=== PATIENT | female | born 1995 | race Caucasian/White ===

== ENCOUNTER 2021-03-27 11:41 | Emergency (ER) | payer BC, SELFPAY ==
--- NOTE | ~2021-03-27 | XR_ITS ---
XR knee LT 3V 03/27/2021 13:24 INDICATION: Left knee pain after fall PROCEDURE: 3 views left knee COMPARISON: No prior studies for comparison. FINDINGS: Fracture, dislocation or subluxation is not identified. No significant joint effusion. The soft tissues appear within normal limits. No foreign bodies are identified. IMPRESSION: 1: NO ACUTE BONE OR JOINT ABNORMALITY IDENTIFIED. Reviewed, dictated and finalized at location A.
--- NOTE | ~2021-03-27 | XR_ITS ---
XR foot LT min 3V 03/27/2021 13:24 Indication: Left foot pain after fall Procedure: 4 views left foot Comparison: No prior studies for comparison. Findings: There are mildly angulated fractures of the third and fourth metatarsal necks without intra -articular extension. Lisfranc joint is intact. Impression: 1: Mildly angulated extra-articular fractures of the left third and fourth metatarsal necks. Reviewed, dictated and finalized at location A. Impression: 1: Mildly angulated extra-articular fractures of the left third and fourth meta tarsal necks.
[2021-03-27 11:54] VITALS: BP 109/85; PULSE 130; RESP 16; TEMP 36.6; O2SAT 100
--- NOTE | 2021-03-27 13:29 | ED.GENADULT ---
HPI - General Adult General Chief complaint: Extremity Injury, Lower Stated complaint: lt knee injury/lt foot/ankle Time Seen by Provider: 03/27/21 13:05 Source: patient, family (grandmother (legal guardian)) and RN notes reviewed Mode of arrival: wheelchair Limitations: physical limitation History of Present Illness HPI narrative: 25-year-old female presents with grandmother, who complains of left foot pain and swelling and left knee pain for the past 2 hours. Grandmother reports Susan fell off a curb today at approximately 11:00 AM causing injuries to LT knee and foot. Reports Susan refused to walk up stairs in home so she sought care for her. Grandmother reports Susan reports pain to ever and anything with assessment but believes LT foot truly has pain to it. No treatment. Hurts to bear weight. No radiating pain. No numbness, tingling, or loss of mobility. Exacerbating factor applying weight. Susan complains of inability to bear weight. Denies discoloration. Denies suspect foreign body. Denies fever. Urine output within normal limits. Tolerating liquids well. Immunizations up-to-date. The patient's grandmother reports they have not been diagnosed with COVID-19. The patient's grandmother reports they received 2 Pfizer COVID-19 vaccines. The patient's grandmother reports they are not waiting for the results of a COVID-19 lab test. The patient's grandmother reports they do not have chills, weakness, fatigue, or myalgia. The patient's grandmother reports they do not have a new or worsening cough or shortness of breath. Denies chest pain. The patient's grandmother reports they do not have any rhinorrhea, congestion, loss of taste or smell, sore throat, nausea, vomiting, abdominal pain, and diarrhea. Denies recent traveling. Denies concerns for COVID-19 or exposures. At this time, the patient is not suspected of having COVID-19. Some parts of this dictation were generated by voice recognition software and may contain typographical and/or grammatical inaccuracies. Related Data Home Medications Medication Instructions Recorded Confirmed cephalexin 03/27/21 clonidine HCl 03/27/21 ergocalciferol (vitamin D2) 03/27/21 [Vitamin D2] ferrous sulfate [FeroSul] mg 03/27/21 fluconazole 03/27/21 levothyroxine 03/27/21 lorazepam 03/27/21 sertraline mg 03/27/21 Allergies Allergy/AdvReac Type Severity Reaction Status Date / Time Penicillins Allergy Mild Unverified 05/13/17 13:49 latex Allergy Unknown RASH Verified 05/13/17 13:49 morphine Allergy Unknown Unverified 05/13/17 13:49 Sulfa (Sulfonamide Allergy Unknown HIVES Verified 05/05/19 09:48 Antibiotics) cetirizine AdvReac Unknown HYPERACTIVI Verified 05/13/17 13:49 TY Review of Systems Review of Systems: CONSTITUTIONAL: Denies fever, chills, sweats. EYES: Denies visual changes, redness, discharge. ENT: Denies rhinorrhea, congestion, sore throat, otalgia. CARDIOVASCULAR: Denies chest pain, palpitations, edema. RESPIRATORY: Denies dyspnea, wheezing, cough. GASTROINTESTINAL: Denies abdominal pain, nausea, vomiting, diarrhea. GENITOURINARY: Denies dysuria, hematuria, abnormal discharge. SKIN: Denies rash or itching. Complaints of left knee abrasion. MUSCULOSKELETAL: Denies acute back pain or myalgia. Complaints of left foot pain and swelling and left knee pain. NEUROLOGIC: Denies numbness or focal weakness. PSYCHIATRIC: Denies anxiety or depression. All other systems reviewed are negative, except as documented in HPI and below. [facility] Past Medical History Medical History Encephalopathy Learning disabilities Surgical History Surgical History (Updated 03/30/21 @ 03:00 by CARLOTTA Mayorga) No significant past surgical history Family History Family History (Updated 03/30/21 @ 03:01 by CARLOTTA Mayorga) Other No significant family history Social History Social History (Updated 03/30/21 @ 03:0
== END 2021-03-27 13:55 | disposition home or self-care (01) ==
PROVIDERS: Emergency Provider Nurse Practitioner Family; PCP Family Medicine
DX: S92.332A Displaced fracture of third metatarsal bone, left foot, initial encounter for closed fracture (principal); S92.342A Displaced fracture of fourth metatarsal bone, left foot, initial encounter for closed fracture; S80.02XA Contusion of left knee, initial encounter; S80.212A Abrasion, left knee, initial encounter; W10.1XXA Fall (on)(from) sidewalk curb, initial encounter; G93.40 Encephalopathy, unspecified
CPT/HCPCS: 73562; 73630; 99214; G0463

== ENCOUNTER 2021-05-31 14:53 | Emergency (ER) | payer BC, SELFPAY ==
[2021-05-31 15:01] VITALS: BP 123/83; PULSE 112; RESP 18; TEMP 36.2; O2SAT 99
--- NOTE | 2021-05-31 15:12 | ED.URI ---
HPI - URI/Sore Throat General Chief Complaint: Upper Respiratory Infection Stated Complaint: congestion Time Seen by Provider: 05/31/21 14:55 Source: patient, family and RN notes reviewed History of Present Illness HPI Narrative: Patient is a 25-year-old female who presents the urgent care with her mother with complaints of headache, congestion, bilateral ear pain and postnasal drainage. Patient also reports a slight sore throat. Mother states that she does not typically leave her home and no one else in the house has been diagnosed with any acute illness. Denies of any fever, chills, nausea, vomiting, abdominal pain. States that she has been giving her Tylenol and Benadryl for her symptoms. Mother states that she typically has allergies around this time and chronic sinusitis . States that she has had a Covid vaccine. No other acute complaints. No acute distress noted. Mother aware of the plan of care. Some parts of this dictation were generated by voice recognition software and may contain typographical and/or grammatical inaccuracies. Related Data Home Medications Medication Instructions Recorded Confirmed clonidine HCl 03/27/21 ergocalciferol (vitamin D2) 03/27/21 [Vitamin D2] ferrous sulfate [FeroSul] mg 03/27/21 fluconazole 03/27/21 levothyroxine 03/27/21 lorazepam 03/27/21 sertraline mg 03/27/21 Allergies Allergy/AdvReac Type Severity Reaction Status Date / Time Penicillins Allergy Mild Unverified 05/13/17 13:49 latex Allergy Unknown RASH Verified 05/13/17 13:49 morphine Allergy Unknown Unverified 05/13/17 13:49 Sulfa (Sulfonamide Allergy Unknown HIVES Verified 05/05/19 09:48 Antibiotics) cetirizine AdvReac Unknown HYPERACTIVI Verified 05/13/17 13:49 TY Review of Systems Review of Systems: CONSTITUTIONAL: Denies fever, chills, or sweats. EYES: Denies visual changes, redness, or discharge. ENT: Reports of nasal congestion, sore throat, postnasal drainage and bilateral otalgia CARDIOVASCULAR: Denies chest pain, palpitations, or edema. RESPIRATORY: Denies cough or dyspnea. GASTROINTESTINAL: Denies abdominal pain, nausea, vomiting, or diarrhea. GENITOURINARY: Denies dysuria or hematuria. SKIN: Denies rash or itching. MUSCULOSKELETAL: Denies back pain, joint pain, or myalgia. NEUROLOGIC: Reports of headache All other systems reviewed are negative, except as documented in HPI. [facility] Past Medical History Medical History Encephalopathy Learning disabilities Surgical History Surgical History (Updated 03/30/21 @ 03:00 by CARLOTTA Mayorga) No significant past surgical history Family History Family History (Updated 03/30/21 @ 03:01 by CARLOTTA Mayorga) Other No significant family history Social History Social History (Updated 03/30/21 @ 03:02 by CARLOTTA Mayorga) Smoking status: Never smoker Tobacco type: cigarettes Second hand tobacco smoke exposure: No Alcohol intake: never Substance use: never Substance use type: does not use Additional occupation/education comments: disable Gender identity (if verbalized by the patient): Female Comments At the time of my signature, I reviewed and agree with the nursing past medical, surgical, social, and family history. There is no relevant family history pertinent to the patient complaint. Exam Narrative: GENERAL: This is a well-nourished, well-developed patient, in no apparent distress. HEAD: normocephalic, atraumatic. EYES: PERRL. Sclera clear/white. Vision is grossly intact. EARS: External ears normal, auditory canals clear and without drainage, TMs normal without perforation. Hearing grossly intact. NOSE: External nose normal with no obvious nasal discharge, nares without redness, clear to yellow rhinorrhea. THROAT: Mucous membranes moist, posterior pharynx clear. Moderate postnasal drainage NECK: Neck supple CARDIOVASCULAR: Regular rate and rhythm RESPIRATORY: Clear to auscultat
== END 2021-05-31 15:26 | disposition home or self-care (01) ==
PROVIDERS: Emergency Provider Nurse Practitioner Family; PCP Family Medicine
DX: J32.9 Chronic sinusitis, unspecified (principal); G93.40 Encephalopathy, unspecified
CPT/HCPCS: 99213; G0463

== ENCOUNTER 2021-06-13 10:13 | Emergency (ER) | payer BC, SELFPAY ==
--- NOTE | ~2021-06-13 | XR_ITS ---
EXAMINATION: XR chest 2V DATE: 06/13/2021 11:09 INDICATION: Cough and fever TECHNIQUE: PA and lateral views of the chest are obtained. COMPARISON: None available FINDINGS: There are patchy opacities of the mid and lower lung zones. There is no pleural effusion or pneumothorax. The cardiomediastinal silhouette is normal. The visualized bones and soft tissues are unremarkable. IMPRESSION: 1. Patchy airspace opacities of the mid and lower lung zones, consistent with atelectasis versus pneu monia. Reviewed, dictated and finalized at location A. IMPRESSION: 1. Patchy airspace opacities of the mid and lower lung zones, consistent with a telectasis versus pneumonia.
[2021-06-13 10:17] VITALS: BP 104/74; PULSE 127; RESP 16; TEMP 36; O2SAT 98
--- NOTE | 2021-06-13 10:48 | ED.GENADULT ---
HPI - General Adult General Chief complaint: Upper Respiratory Infection Stated complaint: FEVER/COUGH/DRAINAGE Source: patient Mode of arrival: ambulatory Limitations: no limitations History of Present Illness HPI narrative: Patient is a 25-year-old female who presents to the [facility] via POV accompanied by guardian for evaluation of upper respiratory symptoms that have been present for 2 weeks. Additionally, guardian reports that she has had a nonproductive, wet cough and fever. She reports maximum temperature to be 101.8. Benadryl, Flonase, and ibuprofen provide some relief. Symptoms worsen at night. She lives with her grandparents. Grandmother states that grandfather was treated for pneumonia and discharged from the hospital 1 day ago. Of note, patient was evaluated in this clinic 2 weeks ago and diagnosed with sinusitis. She was prescribed prednisone at that time. Related Data Home Medications Medication Instructions Recorded Confirmed clonidine HCl 0.2 mg PO HS 03/27/21 06/13/21 ergocalciferol (vitamin D2) 50,000 unit PO USEASDIRECTD 03/27/21 06/13/21 [Vitamin D2] ferrous sulfate [FeroSul] 325 mg PO DAILY 03/27/21 06/13/21 levothyroxine 50 mcg PO DAILY 03/27/21 06/13/21 sertraline 100 mg PO DAILY 03/27/21 06/13/21 metformin 1,000 mg PO DAILY 06/13/21 06/13/21 Allergies Allergy/AdvReac Type Severity Reaction Status Date / Time Penicillins Allergy Mild Rash Unverified 06/13/21 10:20 latex Allergy Unknown RASH Verified 05/13/17 13:49 morphine Allergy Unknown Irritable Unverified 06/13/21 10:20 Sulfa (Sulfonamide Allergy Unknown HIVES Verified 05/05/19 09:48 Antibiotics) cetirizine AdvReac Unknown HYPERACTIVI Verified 05/13/17 13:49 TY Review of Systems Review of Systems: Denies history of COPD, bronchitis, asthma, and pneumonia. Denies current/past tobacco use. Pertinent negatives: sweats, chills, change in appetite, fatigue, skin color changes, headache, nasal congestion/discharge, dizziness, lymphadenopathy, sinus problems, ear pain/drainage, sore throat, difficulty swallowing, chest pain, heart murmurs, heart palpitations, shortness of breath, wheezing, cyanosis, hemoptysis, hoarseness, orthopnea, pleuritic pain, nausea, vomiting, diarrhea, and myalgias. [facility] Past Medical History Medical History (Updated 06/13/21 @ 11:24 by CARLOTTA Cai, [place]) Diabetes Encephalopathy GERD (gastroesophageal reflux disease) Hypothyroidism Learning disabilities Seasonal allergic rhinitis Surgical History Surgical History No significant past surgical history Family History Family History Other No significant family history Social History Social History Smoking status: Never smoker Tobacco type: cigarettes Second hand tobacco smoke exposure: No Alcohol intake: never Substance use: never Substance use type: does not use Additional occupation/education comments: disable Gender identity (if verbalized by the patient): Female Exam Narrative: GENERAL: Well-appearing, well-nourished, and in no acute distress. HEAD: Normocephalic, atraumatic. No sinus tenderness or facial swelling appreciated. EYES: PERRLA and EOMI. No evidence of erythema, swelling, or drainage. ENT: Bilateral external ears and ear canals normal. Bilateral TMs are normal.No TM perforation. Nares clear, no rhinorrhea or epistaxis. Bilateral turbinates without erythema/ swelling. Mucous membranes moist and pink. Uvula is midline without erythema and swelling. No evidence of petechial rash, cobblestoning, lesions, ulcers, erythema, swelling, exudates, peritonsillar abscess, tenting, or drooling. Breath odor and voice normal. NECK: Supple. No Lymphadenopathy or nuchal rigidity appreciated. CHEST: Bilateral lung mace are clear to
== END 2021-06-13 11:32 | disposition home or self-care (01) ==
PROVIDERS: Emergency Provider Nurse Practitioner Family; PCP Family Medicine
DX: R05.9 Cough, unspecified (principal); E11.9 Type 2 diabetes mellitus without complications; K21.9 Gastro-esophageal reflux disease without esophagitis; E03.9 Hypothyroidism, unspecified; G93.40 Encephalopathy, unspecified; F81.9 Developmental disorder of scholastic skills, unspecified
CPT/HCPCS: 71046; 99213; G0463

== ENCOUNTER 2021-09-15 12:31 | Outpatient (CLI) | payer BC, SELFPAY ==
--- NOTE | ~2021-09-15 | XR_ITS ---
EXAMINATION: XR chest 2V 09/15/2021 12:48 INDICATION: Pneumonia follow-up PROCEDURE: 2 view chest COMPARISON: 06/13/2021 FINDINGS: The lungs are clear. The cardiomediastinal silhouette is within normal limits. There are no pleural effusions. There is no pneumothorax suspected. IMPRESSION: 1: NO ACUTE CARDIOPULMONARY DISEASE. Reviewed, dictated and finalized at location B. TABLE OPERATOR
== END 2021-09-15 12:32 | disposition home or self-care (01) ==
PROVIDERS: PCP Family Medicine; Visit Provider Family Medicine
DX: J18.9 Pneumonia, unspecified organism (principal)
CPT/HCPCS: 71046

== ENCOUNTER 2022-11-06 12:34 | Emergency (ER) | payer BC, SELFPAY ==
[2022-11-06 12:42] VITALS: BP 113/96; PULSE 87; RESP 22; TEMP 36.4; O2SAT 100
--- NOTE | 2022-11-06 12:58 | ED.URI ---
HPI - URI/Sore Throat General Chief Complaint: Upper Respiratory Infection Stated Complaint: sore throat,congestion,ear pain,fever Time Seen by Provider: 11/06/22 12:58 History of Present Illness HPI Narrative: 27 y/o female with hx DM, learning disabilities on autism spectrum presented with guardian/grandmother for c/o sore throat for 3 days. Endorses runny nose and ear pain. Giving scheduled nasal spray and ibuprofen for symptoms. Denies sick contacts. Patient tested positive for covid and prescribed paxlovid 10/20. Denies sob, wheezing, n/v/d/f/c. Grandmother reports patient is choking risk, despite creating small bites, patient will load the fork and forget to chew. Denies difficulty swallowing secretions. Related Data Home Medications Medication Instructions Recorded Confirmed clonidine HCl 0.2 mg tablet 0.2 mg PO HS 03/27/21 06/13/21 ergocalciferol (vitamin D2) 1,250 50,000 unit PO USEASDIRECTD 03/27/21 06/13/21 mcg (50,000 unit) capsule (Vitamin D2) ferrous sulfate 325 mg (65 mg 325 mg PO DAILY 03/27/21 06/13/21 iron) tablet (FeroSul) levothyroxine 50 mcg tablet 50 mcg PO DAILY 03/27/21 06/13/21 sertraline 100 mg tablet 100 mg PO DAILY 03/27/21 06/13/21 metformin 500 mg tablet,extended 1,000 mg PO DAILY 06/13/21 06/13/21 release 24 hr Allergies Allergy/AdvReac Type Severity Reaction Status Date / Time Penicillins Allergy Mild Rash Unverified 11/06/22 12:58 latex Allergy Unknown RASH Verified 11/06/22 12:58 morphine Allergy Unknown Irritable Unverified 11/06/22 12:58 Sulfa (Sulfonamide Allergy Unknown HIVES Verified 11/06/22 12:58 Antibiotics) cetirizine AdvReac Unknown HYPERACTIVI Verified 11/06/22 12:58 TY Review of Systems Review of Systems: CONSTITUTIONAL: Denies body aches, fever, chills, or sweats. EYES: Denies visual changes, redness, or discharge. ENT: Reports sore throat, rhinorrhea, congestion, otalgia. CARDIOVASCULAR: Denies chest pain, palpitations, or edema. RESPIRATORY: Denies dyspnea. GASTROINTESTINAL: Denies abdominal pain, nausea, vomiting, or diarrhea. SKIN: Denies rash, itching, or wounds. MUSCULOSKELETAL: Denies back pain, joint pain, or myalgia. NEUROLOGIC: Denies headache [facility] Past Medical History Medical History Diabetes Encephalopathy GERD (gastroesophageal reflux disease) Hypothyroidism Learning disabilities Seasonal allergic rhinitis Surgical History Surgical History No significant past surgical history Family History Family History Other No significant family history Social History Social History Smoking status: Never smoker Tobacco type: cigarettes Second hand tobacco smoke exposure: No Alcohol intake: never Substance use: never Substance use type: does not use Living arrangements: with family Occupation/Education: other Additional occupation/education comments: disable Gender identity (if verbalized by the patient): Female Exam Narrative: GENERAL: well-appearing, no acute distress. EYES: conjunctivae clear ENT: Mucous membranes moist. TM pearly vizcaino with normal light reflex bilaterally; no tragal tenderness. Oropharynx without erythema without lesions. Tonsils not enlarged and without exudate. Whisper voice. No drooling, no trismus, uvula midline. No tripod positioning, hot potato voice, or soft palate swelling. NECK: Supple. No lymphadenopathy CHEST: Clear to auscultation, breath sounds equal. No respiratory distress, speaks in full sentences. HEART: Regular rate and rhythm. No murmur heard. SKIN: Warm, dry, no rash. NEURO: Alert. speaks minimally Course Course Emergency Course: Patient is aware of diagnosis, understands and agrees to treatment plan. Anticipatory guidance given. P
== END 2022-11-06 13:22 | disposition home or self-care (01) ==
PROVIDERS: Emergency Provider Nurse Practitioner Family; PCP Family Medicine
DX: J02.9 Acute pharyngitis, unspecified (principal); E11.9 Type 2 diabetes mellitus without complications; K21.9 Gastro-esophageal reflux disease without esophagitis; E03.9 Hypothyroidism, unspecified; Z86.16 Personal history of COVID-19
CPT/HCPCS: 87081; 87880; 99213; G0463

== ENCOUNTER 2023-06-10 10:43 | Emergency (ER) | payer MEDICARE, MEDICAID, SELFPAY ==
[2023-06-10 11:32] VITALS: BP 122/67; PULSE 74; RESP 16; TEMP 36.4; O2SAT 99
--- NOTE | 2023-06-10 11:38 | ED.GENADULT ---
HPI - General Adult General Chief complaint: Upper Respiratory Infection Stated complaint: Sore Throat, Headache,Earache,Fever Source: patient and family Mode of arrival: ambulatory Limitations: other (developmental disability) History of Present Illness HPI narrative: Patient presents for evaluation of sick symptoms for last 4 days. Symptoms include sore throat, bilateral otalgia, headache, fever. T-max at home 101? F. Her grandmother, with whom she lives, is being evaluated here for similar symptoms. She has been taking aspirin and ibuprofen for her symptoms. She does not smoke. She took a home COVID test yesterday, which was negative. Related Data Home Medications Medication Instructions Recorded Confirmed ergocalciferol (vitamin D2) 1,250 50,000 unit PO USEASDIRECTD 03/27/21 06/10/23 mcg (50,000 unit) capsule (Vitamin D2) ferrous sulfate 325 mg (65 mg 325 mg PO DAILY 03/27/21 06/10/23 iron) tablet (FeroSul) L norgest/E estradiol-E estrad 1 tablet PO DAILY 06/10/23 06/10/23 0.15 mg-30 mcg (84)/10 mcg(7) tabs,3mos ([place]) azelastine 0.05 % eye drops See Rx Instructions .Route .COMPLEX 06/10/23 06/10/23 clonazepam 0.5 mg tablet 0.5 mg PO USEASDIRECTD 06/10/23 06/10/23 fluoxetine 40 mg capsule 40 mg PO DAILY 06/10/23 06/10/23 glipizide 2.5 mg tablet, extended 2.5 mg PO DAILY 06/10/23 06/10/23 release 24 hr levothyroxine 100 mcg tablet 100 mcg PO DAILY 06/10/23 06/10/23 Allergies Allergy/AdvReac Type Severity Reaction Status Date / Time Penicillins Allergy Mild Rash Verified 06/10/23 10:56 latex Allergy Unknown RASH Verified 06/10/23 10:56 morphine Allergy Unknown Irritable Verified 06/10/23 10:56 Sulfa (Sulfonamide Allergy Unknown HIVES Verified 06/10/23 10:56 Antibiotics) cetirizine AdvReac Unknown HYPERACTIVI Verified 06/10/23 10:56 TY Review of Systems Review of Systems: CONSTITUTIONAL: Reports fever. Denies chills, or sweats. EYES: Denies visual changes, redness, or discharge. ENT: Reports bilateral otalgia and sore throat. CARDIOVASCULAR: Denies chest pain, palpitations, or edema. RESPIRATORY: Denies cough or dyspnea. GASTROINTESTINAL: Denies abdominal pain, nausea, vomiting, or diarrhea. GENITOURINARY: Denies dysuria or hematuria. SKIN: Denies rash or itching. MUSCULOSKELETAL: Denies back pain, joint pain, or myalgia. NEUROLOGIC: Reports headache. Denies numbness, dizziness, or weakness. PSYCHIATRIC: Denies anxiety or depression. [facility] Past Medical History Medical History Diabetes Encephalopathy GERD (gastroesophageal reflux disease) Hypothyroidism Learning disabilities Seasonal allergic rhinitis Surgical History Surgical History No significant past surgical history Family History Family History Other No significant family history Social History Social History Smoking status: Never smoker Tobacco type: cigarettes Second hand tobacco smoke exposure: No Alcohol intake: never Substance use: never Substance use type: does not use Living arrangements: with family Occupation/Education: other Additional occupation/education comments: disable Gender identity (if verbalized by the patient): Female Course Course Emergency Course: This is a 27-year-old female who presented for evaluation of sick symptoms. COVID at home was negative. Strep and influenza here negative. Exam is consistent with acute viral syndrome. Increase hydration. [id number] agents for symptom management. Follow up with primary provider. Go to the ER for worsening symptoms. Patient and grandmother in agreement with plan of care per Level of Care: Express Care Visit Vital Signs Vital signs: Vital Signs Temperature 36.4
== END 2023-06-10 11:37 | disposition home or self-care (01) ==
PROVIDERS: Emergency Provider Nurse Practitioner; PCP Family Medicine
DX: B34.9 Viral infection, unspecified (principal); E11.9 Type 2 diabetes mellitus without complications; K21.9 Gastro-esophageal reflux disease without esophagitis; E03.9 Hypothyroidism, unspecified
CPT/HCPCS: 87081; 87804; 87880; 99213; G0463

== ENCOUNTER 2023-12-17 09:57 | Emergency (ER) | payer MEDICARE, MEDICAID, SELFPAY ==
[2023-12-17 10:11] VITALS: BP 131/78; PULSE 92; RESP 16; TEMP 36.6; O2SAT 99
--- NOTE | 2023-12-17 10:13 | ED.GENADULT ---
HPI - General Adult General Chief complaint: Upper Respiratory Infection Stated complaint: Ear/Throat Pain Time Seen by Provider: 12/17/23 10:13 Source: patient Mode of arrival: ambulatory Limitations: no limitations History of Present Illness HPI narrative: 28-year-old female patient presents to the [facility] accompanied with her family with complaints of bilateral ear and throat pain for the past 6 days. Family states that she has been running fevers as high as 101. Denies any coughing, runny nose. Denies any chest pain, shortness of breath denies any abdominal pain, nausea, vomiting or diarrhea. Related Data Home Medications Medication Instructions Recorded Confirmed ergocalciferol (vitamin D2) 1,250 50,000 unit PO USEASDIRECTD 03/27/21 12/17/23 mcg (50,000 unit) capsule (Vitamin D2) ferrous sulfate 325 mg (65 mg 325 mg PO DAILY 03/27/21 12/17/23 iron) tablet (FeroSul) L norgest/E estradiol-E estrad 1 tablet PO DAILY 06/10/23 12/17/23 0.15 mg-30 mcg (84)/10 mcg(7) tabs,3mos (Simpesse) clonazepam 0.5 mg tablet 0.5 mg PO USEASDIRECTD 06/10/23 12/17/23 fluoxetine 40 mg capsule 40 mg PO DAILY 06/10/23 12/17/23 glipizide 2.5 mg tablet, extended 2.5 mg PO DAILY 06/10/23 12/17/23 release 24 hr levothyroxine 100 mcg tablet 100 mcg PO DAILY 06/10/23 12/17/23 fluticasone propionate 50 50 mcg intranasal DIRECTED 12/17/23 12/17/23 mcg/actuation nasal spray,suspension semaglutide 3 mg tablet (Rybelsus) 3 mg PO DAILY 12/17/23 12/17/23 Allergies Allergy/AdvReac Type Severity Reaction Status Date / Time Penicillins Allergy Mild Rash Verified 12/17/23 10:15 latex Allergy Unknown RASH Verified 12/17/23 10:15 morphine Allergy Unknown Irritable Verified 12/17/23 10:15 Sulfa (Sulfonamide Allergy Unknown HIVES Verified 12/17/23 10:15 Antibiotics) cetirizine AdvReac Unknown HYPERACTIVI Verified 12/17/23 10:15 TY Review of Systems Review of Systems: CONSTITUTIONAL: Positive fever, denies chills, or sweats. EYES: Denies visual changes, redness, or discharge. ENT: Denies rhinorrhea, congestion, positive sore throat, positive bilateral otalgia. CARDIOVASCULAR: Denies chest pain, palpitations, or edema. RESPIRATORY: Denies cough or dyspnea. GASTROINTESTINAL: Denies abdominal pain, nausea, vomiting, or diarrhea. GENITOURINARY: Denies dysuria or hematuria. SKIN: Denies rash or itching. MUSCULOSKELETAL: Denies back pain, joint pain, or myalgia. NEUROLOGIC: Denies headache, numbness, or weakness. PSYCHIATRIC: Denies anxiety or depression. [facility] Past Medical History Medical History Diabetes Encephalopathy GERD (gastroesophageal reflux disease) Hypothyroidism Learning disabilities Seasonal allergic rhinitis Surgical History Surgical History No significant past surgical history Family History Family History Other No significant family history Social History Social History Smoking status: Never smoker Tobacco type: cigarettes Second hand tobacco smoke exposure: No Alcohol intake: never Substance use: never Substance use type: does not use Living arrangements: with family Occupation/Education: other Additional occupation/education comments: disable Gender identity (if verbalized by the patient): Female Comments At the time of my signature I agree with nursing past medical history, surgical, social, and family history. There is no relevant family history pertinent to the presenting complaint. Exam Narrative: GENERAL: Well-appearing, well-nourished, and in no acute distress. HEAD: Normocephalic, atraumatic. EYES: PERRLA and EOMI. ENT: Nares clear, no rhinorrhea or epistaxis. Mucous membranes moist. posterior pharynx with no erythema, tonsilla
== END 2023-12-17 10:50 | disposition home or self-care (01) ==
PROVIDERS: Emergency Provider Nurse Practitioner Family; PCP Family Medicine
DX: J02.9 Acute pharyngitis, unspecified (principal); Z20.822 Contact with and (suspected) exposure to COVID-19; E11.9 Type 2 diabetes mellitus without complications; K21.9 Gastro-esophageal reflux disease without esophagitis; E03.9 Hypothyroidism, unspecified
CPT/HCPCS: 87081; 87426; 87804; 87880; 99213; G0463

== ENCOUNTER 2024-01-23 16:20 | Emergency (ER) | payer MEDICARE, MEDICAID, SELFPAY ==
[2024-01-23 16:31] VITALS: BP 127/80; PULSE 98; RESP 16; TEMP 36.6; O2SAT 97
--- NOTE | 2024-01-23 16:31 | ED.GENADULT ---
HPI - General Adult General Chief complaint: Unspecified Stated complaint: High Blood Pressure Time Seen by Provider: 01/23/24 16:40 Source: patient, family, RN notes reviewed and old records reviewed Mode of arrival: ambulatory Limitations: altered mental status (ppatient has developmental disability) History of Present Illness HPI narrative: 28 year old female who is developmentally disabled accompanied by grandmother who is her legal guardian presents to express care with complaints of elevated blood sugars and elevated glucose per fingersticks. Grandmother states that since the her granddaughter has been having elevated blood pressure and also some elevated glucose levels in the low 300's. Grandmother reports that she called the doctors office on the for granddaughter to be seen and no appointment available was told to go to urgent care or ED. Grandmother states she didn't take her because she wasn't sure what could be done, thought grand daughter needed seen in office by PCP. Patient reports today blood sugar at 1600 310 per finger stick and blood pressure earlier today 137/79 ; states she called office today again and was told she needed to take her to urgent care or ED so she came here. Grandmother reports that glipizide was increased to 5mg on 01/02/2024 and patient was ordered Phentermine because she just wants to eat all the time, on the 31 of December but grandmother states she didn't start it. Grandmother states that she gives her carrot sticks and celery sticks for snacks and some Cheez-it. Grand mother states that grand daughter is constantly thirsty. Grandmother reports that patient has appointment on the with a new PCP. complaint: blood sugar and blood pressure elevation Onset (ago): day(s) (blood pressure elevated about 14 days; glucose level for about a month ) Severity: moderate Treatments prior to arrival: other (Glipizide increased on the by PCP) Related Data Home Medications Medication Instructions Recorded Confirmed ergocalciferol (vitamin D2) 1,250 50,000 unit PO USEASDIRECTD 03/27/21 01/23/24 mcg (50,000 unit) capsule (Vitamin D2) ferrous sulfate 325 mg (65 mg 325 mg PO DAILY 03/27/21 01/23/24 iron) tablet (FeroSul) L norgest/E estradiol-E estrad 1 tablet PO DAILY 06/10/23 01/23/24 0.15 mg-30 mcg (84)/10 mcg(7) tabs,3mos (Simpesse) clonazepam 0.5 mg tablet 0.5 mg PO USEASDIRECTD 06/10/23 01/23/24 fluoxetine 40 mg capsule 40 mg PO DAILY 06/10/23 01/23/24 levothyroxine 100 mcg tablet 100 mcg PO DAILY 06/10/23 01/23/24 fluticasone propionate 50 50 mcg intranasal DIRECTED 12/17/23 01/23/24 mcg/actuation nasal spray,suspension L norgest/E estradiol-E estrad 01/23/24 0.15 mg-30 mcg (84)/10 mcg(7) tabs,3mos (Simpesse) glipizide 5 mg tablet, extended 5 mg PO DAILY 01/23/24 01/23/24 release 24 hr phentermine 37.5 mg tablet 37.5 mg PO DAILY 01/23/24 01/23/24 Allergies Allergy/AdvReac Type Severity Reaction Status Date / Time Penicillins Allergy Mild Rash Verified 01/23/24 16:29 latex Allergy Unknown RASH Verified 01/23/24 16:29 morphine Allergy Unknown Irritable Verified 01/23/24 16:29 Sulfa (Sulfonamide Allergy Unknown HIVES Verified 01/23/24 16:29 Antibiotics) cetirizine AdvReac Unknown HYPERACTIVI Verified 01/23/24 16:29 TY Review of Systems Review of Systems: CONSTITUTIONAL: Denies fever, chills, or sweats. EYES: Denies visual changes, redness, or discharge. ENT: Denies rhinorrhea, congestion, sore throat, or otalgia. CARDIOVASCULAR: Denies chest pain, palpitations, or edema. RESPIRATORY: Denies cough or dyspnea. GASTROINTESTINAL: Denies abdominal pain, nausea, vomiting, or diarrhea. GENITOURINARY: Denies dysuria or hematuria. SKIN: Denies rash or itching. MUSCULOSKELETAL: Denies back pain, joint pain, or myalgia. NEUROLOGIC: Denies headache, numbness, or weakness. PSYCHIATRIC: Denies anxiety or depression. All systems reviewed & are unremarkable
[2024-01-23 16:34] VITALS: BP 127/80; PULSE 98; RESP 16; TEMP 36.6; O2SAT 97
[2024-01-23 17:10] LABS: Glucose Point of Care 335 mg/dl (65-105)
== END 2024-01-23 17:45 | disposition short-term general hospital (02) ==
PROVIDERS: Emergency Provider Registered Nurse; PCP Nurse Practitioner Family
DX: E11.9 Type 2 diabetes mellitus without complications (principal); K21.9 Gastro-esophageal reflux disease without esophagitis; E03.9 Hypothyroidism, unspecified; F81.9 Developmental disorder of scholastic skills, unspecified
CPT/HCPCS: 81003; 82948; 99212; G0463

== ENCOUNTER 2024-01-23 17:55 | Emergency (ER) | payer MEDICARE, MEDICAID, SELFPAY ==
[2024-01-23 18:07] LABS: Glucose Point of Care 352 mg/dl (65-105)
[2024-01-23 18:15] VITALS: BP 115/79; PULSE 71; RESP 16; O2SAT 100
[2024-01-23 19:56] LABS: Glucose Point of Care 296 mg/dl (65-105)
[2024-01-23 20:18] LABS: Basophils Percent Auto 0.4 % (0.2-1.2); Eosinophils Absolute Auto 0.1 K/mm3 (0-0.3); Eosinophils Percent Auto 0.9 % (0-4.4); Hematocrit 39.6 % (37.0-47.0); Hemoglobin 12.6 g/dL (12.0-15.0); Immature Granulocyte Absolute 0.03 K/mm3 (0.00-0.031); Immature Granulocyte Percent A 0.3 % (0-0.5); Lymphocytes Absolute Auto 4.75 K/mm3 (0.9-3.2); Lymphocytes Percent Auto 46.1 % (18.3-44.2); Mean Corpuscular HGB Conc 31.8 g/dl (32-36); Mean Corpuscular Hemoglobin 25.5 pg (26-34); Mean Platelet Volume 10.3 fl (7.4-10.4); Monocytes Absolute Auto 0.4 K/mm3 (0.1-0.6); Monocytes Percent Auto 4.2 % (2.6-8.5); Neutrophils Percent Auto 48.1 % (45.5-73.1); Platelet Count Result 308 k/mm3 (150-375); Red Blood Count 4.95 M/mm3 (4.2-5.4); Red Cell Distribution Width 13.6 % (11.5-14.5); White Blood Count 10.3 K/mm3 (4.5-10.0)
[2024-01-23 20:30] LABS: Alanine Aminotransferase 46 U/L (6-35); Albumin Level 4.3 g/dL (3.5-5.1); Alkaline Phosphatase 85 U/L (38-126); Anion Gap 8 mmol/L (4-12); Aspartate Amino Transferase 29 U/L (14-36); Bilirubin,Total 0.4 mg/dL (0.2-1.3); Blood Urea Nitrogen 15 mg/dL (7-17); Calcium 9.4 mg/dL (8.4-10.2); Carbon Dioxide 22 mmol/L (22-30); Chloride 106 mmol/L (98-107); Estimated Glomerular Filt Rate > 60; Glucose 279 mg/dL (65-110); Magnesium 1.9 mg/dL (1.6-2.3); Potassium 3.9 mmol/L (3.4-5.0); Sodium 136 mmol/L (137-145)
[2024-01-23 20:33] LABS: Appearance Urine Clear (Clear); Bacteria Urine 1+ /hpf; Bilirubin Urine Negative (Negative); Blood Urine Non-Hemolyzed Trace (Negative); Color Urine Yellow (Yellow); Glucose Urine UA 3+ mg/dL (Negative); Ketones Urine Negative (Negative); Leukocyte Esterase Ur Negative LEU/UL (Negative); Need Manual Microscopic Reviewed; Nitrate Urine Negative (Negative); Protein Urine 1+ mg/dL (Negative); Squamous Epithelial Cell Urine None Seen /hpf (Few); Urobilinogen Urine 0.2 mg/dL (<2.0); WBC Urine 21-50 /hpf (0-3); pH Urine 5.5 (5.0-9.0)
[2024-01-23 20:36] LABS: Beta-Hydroxybutyrate/Acetoacetate 0.06 mmol/L (0.02-0.27)
[2024-01-23 20:37] LABS: Specific Grav Ur 1.036 (1.001-1.035)
[2024-01-23 20:38] LABS: Add Urine Microscopic? YES
[2024-01-23 20:47] VITALS: TEMP 36.9
--- NOTE | 2024-01-23 20:47 | ED.RECABL ---
HPI - Recheck/Abnormal Lab/Rx General Chief Complaint: Recheck/Abnormal Lab/Rx Stated Complaint: elevated blood sugar Time Seen by Provider: 01/23/24 19:48 Source: patient and family (guardian/grandmother) Mode of arrival: ambulatory Limitations: no limitations History of Present Illness HPI narrative: Patient ( Jed ) presents from urgent care with concern for elevated BP and for elevated blood glucose. Patient has not previously been diagnosed with hypertension however when they have been checking her blood pressure readings at home with a wrist cuff lately she has been ranging with the systolic blood pressure in the 150s at times and a diastolic blood pressure in the 90s to 100s. At the urgent care her blood pressure was 137/97. Similarly, her blood sugar has also been elevated, typically greater than 200 mg/dL each morning. Her glyburide dose was recently changed from 2.5 to 5 mg. At the urgent care her blood sugar was 310 mg/dL with 2+ glucose as well as ketones and proteinuria. Patient's primary care physician had been Farzana Ferraro who recently left the practice. She is due to possibly establish with the new [employer] there (a male) or, alternatively, they have an appointment for her to see an [employer] in [facility], on Monday01/30/24. Related Data Home Medications Medication Instructions Recorded Confirmed ergocalciferol (vitamin D2) 1,250 50,000 unit PO USEASDIRECTD 03/27/21 01/23/24 mcg (50,000 unit) capsule (Vitamin D2) ferrous sulfate 325 mg (65 mg 325 mg PO DAILY 03/27/21 01/23/24 iron) tablet (FeroSul) L norgest/E estradiol-E estrad 1 tablet PO DAILY 06/10/23 01/23/24 0.15 mg-30 mcg (84)/10 mcg(7) tabs,3mos (Simpesse) clonazepam 0.5 mg tablet 0.5 mg PO USEASDIRECTD 06/10/23 01/23/24 fluoxetine 40 mg capsule 40 mg PO DAILY 06/10/23 01/23/24 levothyroxine 100 mcg tablet 100 mcg PO DAILY 06/10/23 01/23/24 fluticasone propionate 50 50 mcg intranasal DIRECTED 12/17/23 01/23/24 mcg/actuation nasal spray,suspension L norgest/E estradiol-E estrad 01/23/24 0.15 mg-30 mcg (84)/10 mcg(7) tabs,3mos (Simpesse) glipizide 5 mg tablet, extended 5 mg PO DAILY 01/23/24 01/23/24 release 24 hr phentermine 37.5 mg tablet 37.5 mg PO DAILY 01/23/24 01/23/24 Allergies Allergy/AdvReac Type Severity Reaction Status Date / Time Penicillins Allergy Mild Rash Verified 01/23/24 16:29 latex Allergy Unknown RASH Verified 01/23/24 16:29 morphine Allergy Unknown Irritable Verified 01/23/24 16:29 Sulfa (Sulfonamide Allergy Unknown HIVES Verified 01/23/24 16:29 Antibiotics) cetirizine AdvReac Unknown HYPERACTIVI Verified 01/23/24 16:29 [facility] Past Medical History Medical History (Updated 01/23/24 @ 22:03 by Bridgette Chapman MD) Anxiety Encephalopathy GERD (gastroesophageal reflux disease) Hypothyroidism Learning disabilities Non-insulin dependent diabetes mellitus Seasonal allergic rhinitis Surgical History Surgical History No significant past surgical history Family History Family History Other No significant family history Social History Social History Smoking status: Never smoker Tobacco type: cigarettes Second hand tobacco smoke exposure: No Alcohol intake: never Substance use: never Substance use type: does not use Living arrangements: with family Occupation/Education: other Additional occupation/education comments: disable Gender identity (if verbalized by the patient): Female Exam Narrative: GENERAL: Well-appearing, well-nourished, and in no acute distress. HEAD: Normocephalic, atraumatic. EYES: Non injected, non icteric ENT: Nares clear, no rhinorrhea or epistaxis. NECK: Supple. CHEST: Speaking in full sentences. No respiratory distress. HEART: Regular rate and rhythm. .
[2024-01-23] MEDS: SODIUM CHLORIDE 0.9% IV 1,000 ML 999 ML IV CONT (20:55)
[2024-01-23 21:00] VITALS: BP 111/76; PULSE 66; RESP 17; O2SAT 100
[2024-01-23 21:29] LABS: Hemoglobin A1C 9.2 % (<5.7)
[2024-01-23] MEDS: NITROFURANTOIN MONOHYD MACROCR 100 MG CAP PO (21:40)
[2024-01-23 22:24] VITALS: BP 114/77; PULSE 68; RESP 16; TEMP 36.9; O2SAT 100
== END 2024-01-23 22:26 | disposition home or self-care (01) ==
PROVIDERS: Emergency Provider Student in an Organized Health Care Education/Training Program; PCP Family Medicine
DX: E11.65 Type 2 diabetes mellitus with hyperglycemia (principal); N39.0 Urinary tract infection, site not specified; D72.829 Elevated white blood cell count, unspecified; R74.01 Elevation of levels of liver transaminase levels; K21.9 Gastro-esophageal reflux disease without esophagitis; E03.9 Hypothyroidism, unspecified; F41.9 Anxiety disorder, unspecified; Z79.899 Other long term (current) drug therapy; Z79.84 Long term (current) use of oral hypoglycemic drugs; Z79.3 Long term (current) use of hormonal contraceptives
CPT/HCPCS: 36415; 80053; 81001; 81003; 82010; 82948; 83036; 83735; 85025; 87086; 87088; 96360; 99283; A9270; J7030

== ENCOUNTER 2024-02-08 16:05 | Emergency (ER) | payer MEDICARE, MEDICAID, SELFPAY ==
--- NOTE | 2024-02-08 16:20 | ED.EAR ---
HPI - Ear Problem General Chief complaint: Ear Stated complaint: meds not working Time Seen by Provider: 02/08/24 16:20 Source: patient, RN notes reviewed and old records reviewed Mode of arrival: ambulatory Limitations: no limitations History of Present Illness HPI Narrative: 28-year-old male to [facility] with complaints of bilateral ear discomfort and itching. She was recently treated for otitis externa with ear drops. patient's grandmother was with patient and patient's guardian states that it is developmentally delayed and sensitivity with. Ears. Grandmother states the patient has scratching her ears the point of bleeding. denies any other concerns at this time. Patient calm cooperative. no acute distress Related Data Home Medications Medication Instructions Recorded Confirmed L norgest/E estradiol-E estrad 1 tablet PO DAILY 06/10/23 02/08/24 0.15 mg-30 mcg (84)/10 mcg(7) tabs,3mos (Simpesse) fluoxetine 40 mg capsule 40 mg PO DAILY 06/10/23 02/08/24 levothyroxine 100 mcg tablet 100 mcg PO DAILY 06/10/23 02/08/24 fluticasone propionate 50 50 mcg intranasal DIRECTED 12/17/23 02/08/24 mcg/actuation nasal spray,suspension glipizide 5 mg tablet, extended 5 mg PO DAILY 01/23/24 02/08/24 release 24 hr clonidine HCl 0.2 mg tablet 0.2 mg PO USEASDIRECTD 02/08/24 02/08/24 lorazepam 1 mg tablet 1 mg PO BID 02/08/24 02/08/24 Allergies Allergy/AdvReac Type Severity Reaction Status Date / Time Penicillins Allergy Mild Rash Verified 01/23/24 16:29 latex Allergy Unknown RASH Verified 01/23/24 16:29 morphine Allergy Unknown Irritable Verified 01/23/24 16:29 Sulfa (Sulfonamide Allergy Unknown HIVES Verified 01/23/24 16:29 Antibiotics) cetirizine AdvReac Unknown HYPERACTIVI Verified 01/23/24 16:29 TY amphetamine [From Adderall] AdvReac Drowsy Verified 02/08/24 16:18 dextroamphetamine AdvReac Drowsy Verified 02/08/24 16:18 [From Adderall] Review of Systems Review of Systems: All systems reviewed & are unremarkable except as noted in HPI and below Constitutional: Constitutional: Reports no additional constitutional complaints Eyes: Eyes: Reports no additional eye complaints ENT: Reports as per HPI and Reports otalgia Cardiovascular: Cardiovascular: Reports no additional cardiovascular complaints, Denies chest pain and Denies dyspnea Respiratory: Respiratory: Reports no additional respiratory complaints, Denies cough and Denies dyspnea Musculoskeletal: Musculoskeletal: Reports no additional musculoskeletal complaints Neurologic: Reports system reviewed and no additional complaints, except as documented Psychiatric: Psychiatric: Reports no additional psychiatric complaints [facility] Past Medical History Medical History (Updated 02/09/24 @ 00:01 by Fei Rodriguez) Anxiety Encephalopathy GERD (gastroesophageal reflux disease) Hypothyroidism Learning disabilities Non-insulin dependent diabetes mellitus Seasonal allergic rhinitis Surgical History Surgical History No significant past surgical history Family History Family History Other No significant family history Social History Social History Smoking status: Never smoker Tobacco type: cigarettes Second hand tobacco smoke exposure: No Alcohol intake: never Substance use: never Substance use type: does not use Living arrangements: with family Occupation/Education: other Additional occupation/education comments: disable Gender identity (if verbalized by the patient): Female Comments At the time of my signature, I reviewed and agree with the nursing past medical, surgical, social, and family history. There is no relevant family history pertinent to the patient complaint. Exam Const: General: cooperative, healthy appearing, comfortable,
[2024-02-08 16:27] VITALS: BP 130/84; PULSE 86; RESP 16; TEMP 37.1; O2SAT 99
== END 2024-02-08 17:04 | disposition home or self-care (01) ==
PROVIDERS: Emergency Provider Nurse Practitioner Family
DX: H66.93 Otitis media, unspecified, bilateral (principal); K21.9 Gastro-esophageal reflux disease without esophagitis; E03.9 Hypothyroidism, unspecified; E11.9 Type 2 diabetes mellitus without complications; R62.50 Unspecified lack of expected normal physiological development in childhood
CPT/HCPCS: 99213; G0463

== ENCOUNTER 2024-03-19 17:45 | Emergency (ER) | payer MEDICARE, MEDICAID, SELFPAY ==
[2024-03-19 17:46] VITALS: BP 135/93; PULSE 68; RESP 16; TEMP 36.6; O2SAT 97
--- NOTE | 2024-03-19 19:39 | ED.EAR ---
HPI - Ear Problem General Chief complaint: Ear Stated complaint: bead in R ear Time Seen by Provider: 03/19/24 19:03 Source: patient and family Limitations: no limitations History of Present Illness HPI Narrative: Patient is a 28-year-old female presents to the emergency department accompanied by her grandmother who is her guardian for a bead in her right ear. Earlier today around 5:00 p.m. patient was playing with beads and put 1 in her right ear unintentionally. Patient denies any pain or any complaints at this time. Related Data Home Medications Medication Instructions Recorded Confirmed L norgest/E estradiol-E estrad 1 tablet PO DAILY 06/10/23 02/08/24 0.15 mg-30 mcg (84)/10 mcg(7) tabs,3mos (Simpesse) fluoxetine 40 mg capsule 40 mg PO DAILY 06/10/23 02/08/24 levothyroxine 100 mcg tablet 100 mcg PO DAILY 06/10/23 02/08/24 fluticasone propionate 50 50 mcg intranasal DIRECTED 12/17/23 02/08/24 mcg/actuation nasal spray,suspension glipizide 5 mg tablet, extended 5 mg PO DAILY 01/23/24 02/08/24 release 24 hr clonidine HCl 0.2 mg tablet 0.2 mg PO USEASDIRECTD 02/08/24 02/08/24 lorazepam 1 mg tablet 1 mg PO BID 02/08/24 02/08/24 Allergies Allergy/AdvReac Type Severity Reaction Status Date / Time Penicillins Allergy Mild Rash Verified 03/19/24 17:49 latex Allergy Unknown RASH Verified 03/19/24 17:49 morphine Allergy Unknown Irritable Verified 03/19/24 17:49 Sulfa (Sulfonamide Allergy Unknown HIVES Verified 03/19/24 17:49 Antibiotics) cetirizine AdvReac Unknown HYPERACTIVI Verified 03/19/24 17:49 TY amphetamine [From Adderall] AdvReac Drowsy Verified 03/19/24 17:49 dextroamphetamine AdvReac Drowsy Verified 03/19/24 17:49 [From Adderall] Review of Systems Review of Systems: A 10 system review of systems was completed on the patient and is negative except for what is stated in the HPI. Nursing and ancillary documentation was reviewed. [facility] Past Medical History Medical History (Updated 03/19/24 @ 22:07 by Adin Schulte DO) Anxiety Encephalopathy GERD (gastroesophageal reflux disease) Hypothyroidism Learning disabilities Non-insulin dependent diabetes mellitus Seasonal allergic rhinitis Surgical History Surgical History No significant past surgical history Family History Family History Other No significant family history Social History Social History Smoking status: Never smoker Tobacco type: cigarettes Second hand tobacco smoke exposure: No Alcohol intake: never Substance use: never Substance use type: does not use Living arrangements: with family Occupation/Education: other Additional occupation/education comments: disable Gender identity (if verbalized by the patient): Female Comments At time of signature, I have reviewed and agree with nursing past medical, surgical, social and family history unless otherwise noted. Please see the nursing chart for further information. There is no relevant family history pertinent to the presenting complaint. Exam Narrative: CONST: No acute distress. Well nourished. HENMT: Head is normocephalic and atraumatic. Moist mucous membranes. Right ear canal has a white colored bead at the external aspect without surrounding erythema. Left ear canal is clear and left tympanic membranes is without erythema or bulging. EYES: No conjunctival icterus, injection, or pallor. PERRL. RESP: Able to speak in full sentences. Normal respiratory effort. CTAB. CARDIO: Regular rate. Regular rhythm. 2+ DP and radial pulses bilaterally. GI: Nondistended. SKIN: No rashes or lesions noted on exposed skin. NEURO: Moves all extremities. EXTREM/MSK/BACK: No gross deformities. PSYCH: Normal affect. Course Vital Signs Vital signs: Vital Signs [place]
[2024-03-19 22:20] VITALS: BP 140/70; PULSE 70; RESP 18; O2SAT 98
== END 2024-03-19 22:21 | disposition home or self-care (01) ==
PROVIDERS: Emergency Provider Student in an Organized Health Care Education/Training Program
DX: T16.1XXA Foreign body in right ear, initial encounter (principal); E03.9 Hypothyroidism, unspecified; E11.9 Type 2 diabetes mellitus without complications; K21.9 Gastro-esophageal reflux disease without esophagitis; F81.9 Developmental disorder of scholastic skills, unspecified; F41.9 Anxiety disorder, unspecified; Z79.899 Other long term (current) drug therapy; Z79.84 Long term (current) use of oral hypoglycemic drugs; Z79.3 Long term (current) use of hormonal contraceptives; W44.B1XA Plastic bead entering into or through a natural orifice, initial encounter
CPT/HCPCS: 69200; 99282

== ENCOUNTER 2024-08-05 16:05 | Emergency (ER) | payer MEDICARE, MEDICAID, SELFPAY ==
[2024-08-05 16:14] VITALS: BP 131/87; PULSE 93; RESP 16; TEMP 36.5; O2SAT 100
--- NOTE | 2024-08-05 16:22 | ED_ITS ---
HPI - URI/Sore Throat General Chief Complaint: Upper Respiratory Infection Stated Complaint: Fever/Headache Time Seen by Provider: 08/05/24 16:22 Source: patient and family Mode of arrival: ambulatory Limitations: no limitations History of Present Illness HPI Narrative: 29-year-old female with history of autism and developmentally delayed presents with mom with complaint nasal congestion, bilateral ear pressure, fatigue for 5 days. Afebrile. Uses Flonase nasal spray daily. Not taking any other yqug-ksa-dmwehtj medications to treat symptoms. No cough. No chest pain or shortness of breath. Concern for ear infection. All systems reviewed and negative except as noted above. Related Data Home Medications ?Medication ?Instructions ?Recorded ?Confirmed ?Last Taken ?Type L norgest/E estradiol-E estrad 1 tablet PO DAILY 06/10/23 08/05/24 Unknown History 0.15 mg-30 mcg (84)/10 mcg(7) tabs,3mos (Simpesse) fluoxetine 40 mg capsule 40 mg PO DAILY 06/10/23 08/05/24 Unknown History levothyroxine 100 mcg tablet 100 mcg PO DAILY 06/10/23 08/05/24 Unknown History fluticasone propionate 50 50 mcg intranasal DIRECTED 12/17/23 08/05/24 Unknown History mcg/actuation nasal spray,suspension glipizide 5 mg tablet, extended 5 mg PO DAILY 01/23/24 02/08/24 Unknown History release 24 hr clonidine HCl 0.2 mg tablet 0.2 mg PO USEASDIRECTD 02/08/24 02/08/24 Unknown History lorazepam 1 mg tablet 1 mg PO BID 02/08/24 08/05/24 Unknown History fluoxetine 20 mg capsule 20 mg PO QPM 08/05/24 08/05/24 Unknown History Allergies Allergy/AdvReac Type Severity Reaction Status Date / Time Penicillins Allergy Mild Rash Verified 08/05/24 16:18 latex Allergy Unknown RASH Verified 08/05/24 16:18 morphine Allergy Unknown Irritable Verified 08/05/24 16:18 Sulfa (Sulfonamide Allergy Unknown HIVES Verified 08/05/24 16:18 Antibiotics) cetirizine AdvReac Unknown HYPERACTIVI Verified 08/05/24 16:18 TY amphetamine (From Adderall) AdvReac Drowsy Verified 08/05/24 16:18 dextroamphetamine (From AdvReac Drowsy Verified 08/05/24 16:18 Adderall) Review of Systems Review of Systems: CONSTITUTIONAL: Denies fever, chills, or sweats. Reports fatigue. EYES: Denies visual changes, redness, or discharge. ENT: Reports rhinorrhea, congestion. Denies sore throat. Reports otalgia. CARDIOVASCULAR: Denies chest pain, palpitations, or edema. RESPIRATORY: Denies cough or dyspnea. GASTROINTESTINAL: Denies abdominal pain, nausea, vomiting, or diarrhea. GENITOURINARY: Denies dysuria or hematuria. SKIN: Denies rash or itching. MUSCULOSKELETAL: Denies back pain, joint pain, or myalgia. NEUROLOGIC: Denies headache, numbness, or weakness. PSYCHIATRIC: Denies anxiety or depression. All other systems reviewed are negative, except as documented in HPI. [facility] Past Medical History Medical History Anxiety Non-insulin dependent diabetes mellitus Hypothyroidism GERD (gastroesophageal reflux disease) Seasonal allergic rhinitis Encephalopathy Learning disabilities Surgical History Surgical History No significant past surgical history Family History Family History Other No significant family history Social History Social History Smoking status: Never smoker Tobacco type: cigarettes Second hand tobacco smoke exposure: No Alcohol intake: never Substance use: never Substance use type: does not use Living arrangements: with family Occupation/Education: other Additional occupation/education comments: disable Gender identity (if verbalized by the patient): Female Comments At time of signature, agree with nursing past medical, surgical, social and family history. There is no relevant family history pertinent to the presenting complaint. Exam Narrative: GENERAL: This is a well-nourished, well-developed patient, in no apparent distress. HEAD: normocephalic, atraumatic. EYES: PERRL. Sclera clear/white. Vision is grossly intact. EARS: External ears normal, auditory canals clear and without drainage, fluid bilateral TMs without erythema, bulging or perforation. Hearing grossly intact. NOSE: External nose normal with clear nasal drainage, mild congestion THROAT: Mucous membranes moist, clear postnasal drainage without erythema, swelling or exudates. NECK: Neck supple, non-tender without lymphadenopathy, masses or thyromegaly. CARDIOVASCULAR: Regular rate and rhythm without murmurs, gallops, or rubs. RESPIRATORY: Clear to auscultation. Breath sounds equal bilaterally. No wheezes, rales, or rhonchi. SKIN: warm, Dry, intact with no suspicious lesions or rash, good texture and turgor. NEURO: awake, alert, and oriented to person, place and time. There were no obvious focal neurologic abnormalities. EXTREMITIES: No joint tenderness, effusion, or edema noted. Course Course Level of Care: Express Care Visit Vital Signs Vital signs: Vital Signs Temperature 36.5 C 08/05/24 16:14 Pulse Rate 93 08/05/24 16:14 Respiratory Rate 16 08/05/24 16:14 Blood Pressure 131/87 08/05/24 16:14 Pulse Oximetry 100 08/05/24 16:14 Oxygen Delivery Room Air 08/05/24 16:14 Temperature 36.5 C 08/05/24 16:14 Pulse Rate 93 08/05/24 16:14 Respiratory Rate 16 08/05/24 16:14 Blood Pressure 131/87 08/05/24 16:14 Pulse Oximetry 100 08/05/24 16:14 Oxygen Delivery Room Air 08/05/24 16:14 Reviewed MDM - URI/Sore Throat MDM Narrative Medical decision making narrative: Patient well-appearing. Lungs clear to auscultation. No signs of ear infection noted. Recommend nbsr-vxa-bgjnyax medications to treat viral symptoms. COVID and influenza testing was offered but did not feel was necessary. Recommend follow-up with primary care physician if not improving. Patient is aware of diagnosis, understands and agrees to treatment plan. Anticipatory guidance given. Patient agrees to follow-up as directed and is aware of reasons to seek care at the emergency department. Portions of this record may have been created with voice recognition software Differential Diagnosis Differential diagnosis: Likely upper respiratory infection, otitis media, sinusitis, viral infection and influenza Discharge Plan Discharge Clinical Impression: Upper respiratory infection, viral Patient Disposition: Home, Self-Care Condition: Stable Instructions: Upper Respiratory Infection (ED) Additional Instructions: Your symptoms are viral and may last 10-14 days. Taking [id number]-qhhquoq medication to treat her symptoms such as DayQuil NyQuil cold and Sinus. Continue Flonase nasal spray. Drink at least 64 oz of water a day. Place cool mist humidifier in bedroom where you sleep. Follow-up with primary care physician if symptoms are not improving. Patient Language: Romanian Prescriptions: No Action fluticasone propionate 50 mcg/actuation spray,suspension 50 mcg INTRANASAL DIRECTED glipizide 5 mg tablet extended release 24hr 5 mg PO DAILY fluoxetine 20 mg capsule 20 mg PO QPM fluoxetine 40 mg capsule 40 mg PO DAILY levothyroxine 100 mcg tablet 100 mcg PO DAILY L norgest/e.estradiol-e.estrad [Simpesse] 0.15 mg-30 mcg (84)/10 mcg (7) tablets,dose pack,3 month 1 tablet PO DAILY clonidine HCl 0.2 mg tablet 0.2 mg PO USEASDIRECTD lorazepam 1 mg tablet 1 mg PO BID ciprofloxacin HCl 500 mg tablet 500 mg PO Q12H Qty: 14 0RF Follow-up/Referrals: PHYSICIAN,CABLE PULLER [Primary Care Provider] - Time of Disposition: 16:34
== END 2024-08-05 16:43 | disposition home or self-care (01) ==
PROVIDERS: Emergency Provider Nurse Practitioner Family
DX: J06.9 Acute upper respiratory infection, unspecified (principal); F84.0 Autistic disorder; E11.9 Type 2 diabetes mellitus without complications; Z79.84 Long term (current) use of oral hypoglycemic drugs; E03.9 Hypothyroidism, unspecified; K21.9 Gastro-esophageal reflux disease without esophagitis; F41.9 Anxiety disorder, unspecified
CPT/HCPCS: 99213; G0463

== ENCOUNTER 2024-08-17 14:24 | Emergency (ER) | payer MEDICARE, MEDICAID, SELFPAY ==
[2024-08-17 16:06] VITALS: BP 111/93; PULSE 74; RESP 16; TEMP 36.7; O2SAT 100
--- NOTE | 2024-08-17 16:44 | ED_ITS ---
HPI - URI/Sore Throat General Chief Complaint: Upper Respiratory Infection Stated Complaint: headache, sore throat Time Seen by Provider: 08/17/24 16:39 Source: patient, family (Grandmother) and RN notes reviewed Mode of arrival: ambulatory Limitations: physical limitation History of Present Illness HPI Narrative: Grandmother presents patient today complaining of sore throat, nasal congestion, cough, headache. Symptoms began on 07/26/2024 and have been worsening since onset. Patient to have a fever initially but this has since resolved. She has tried Mucinex, ibuprofen, and Tylenol with some intermittent relief. Related Data Home Medications ?Medication ?Instructions ?Recorded ?Confirmed ?Last Taken ?Type L norgest/E estradiol-E estrad 1 tablet PO DAILY 06/10/23 08/17/24 Unknown History 0.15 mg-30 mcg (84)/10 mcg(7) tabs,3mos (Simpesse) fluoxetine 40 mg capsule 40 mg PO DAILY 06/10/23 08/17/24 Unknown History levothyroxine 100 mcg tablet 100 mcg PO DAILY 06/10/23 08/17/24 Unknown History fluticasone propionate 50 50 mcg intranasal DIRECTED 12/17/23 08/17/24 Unknown History mcg/actuation nasal spray,suspension lorazepam 1 mg tablet 1 mg PO BID 02/08/24 08/17/24 Unknown History fluoxetine 20 mg capsule 20 mg PO QPM 08/05/24 08/17/24 Unknown History Allergies Allergy/AdvReac Type Severity Reaction Status Date / Time Penicillins Allergy Mild Rash Verified 08/17/24 16:05 latex Allergy Unknown RASH Verified 08/17/24 16:05 morphine Allergy Unknown Irritable Verified 08/17/24 16:05 Sulfa (Sulfonamide Allergy Unknown HIVES Verified 08/17/24 16:05 Antibiotics) cetirizine AdvReac Unknown HYPERACTIVI Verified 08/17/24 16:05 TY amphetamine (From Adderall) AdvReac Drowsy Verified 08/17/24 16:05 dextroamphetamine (From AdvReac Drowsy Verified 08/17/24 16:05 Adderall) Review of Systems Review of Systems: CONSTITUTIONAL: Denies body aches,chills, or sweats.+ fever EYES: Denies visual changes, redness, or discharge. ENT: Denies rhinorrhea, or otalgia.+ sore throat, congestion CARDIOVASCULAR: Denies chest pain, palpitations, or edema. RESPIRATORY: Denies dyspnea.+ cough GASTROINTESTINAL: Denies abdominal pain, nausea, vomiting, or diarrhea. GENITOURINARY: Denies dysuria or hematuria. SKIN: Denies rash, itching, or wounds. MUSCULOSKELETAL: Denies back pain, joint pain, or myalgia. NEUROLOGIC: Denies numbness, tingling, or weakness.+ headache PSYCH: Denies depression or anxiety. PMFSH Past Medical History Medical History Anxiety Non-insulin dependent diabetes mellitus Hypothyroidism GERD (gastroesophageal reflux disease) Seasonal allergic rhinitis Encephalopathy Learning disabilities Surgical History Surgical History No significant past surgical history Family History Family History Other No significant family history Social History Social History Smoking status: Never smoker Tobacco type: cigarettes Second hand tobacco smoke exposure: No Alcohol intake: never Substance use: never Substance use type: does not use Living arrangements: with family Occupation/Education: other Additional occupation/education comments: disable Gender identity (if verbalized by the patient): Female Exam Narrative: GENERAL: Mildly ill-appearing, well-nourished, and in no acute distress. HEAD: Normocephalic, atraumatic. EYES: EOMI. No redness or drainage. Conjunctivae normal. ENT: Mucous membranes pink and moist. Nares congested with nasal drainage. TMs normal bilaterally. Throat mildly erythematous on the left side without edema or exudate. Uvula midline. NECK: Normal AROM. Supple. No lymphadenopathy. CHEST: No respiratory distress. Clear to auscultation. HEART: Regular rate and rhythm. No murmur appreciated. EXTREMITIES: Normal range of motion. No edema. SKIN: Warm, dry, no rash. Capillary refill normal. Normal skin turgor. NEURO: No focal deficits. Alert and oriented x3. Gait steady. PSYCH: Normal affect. No signs of depression or anxiety. Course Course Level of Care: Express Care Visit Vital Signs Vital signs: Vital Signs Temperature 98.1 F 08/17/24 16:06 Pulse Rate 74 08/17/24 16:06 Respiratory Rate 16 12/28/24 16:06 Blood Pressure 111/93 H 08/17/24 16:06 Pulse Oximetry 100 08/17/24 16:06 Temperature 98.1 F 08/17/24 16:06 Pulse Rate 74 08/17/24 16:06 Respiratory Rate 16 08/17/24 16:06 Blood Pressure 111/93 H 08/17/24 16:06 Pulse Oximetry 100 08/17/24 16:06 Reviewed MDM - URI/Sore Throat MDM Narrative Medical decision making narrative: Rapid strep negative. Culture pending. Patient will be started on a course of doxycycline for bacterial sinusitis. Anticipatory guidance given. Differential Diagnosis Differential diagnosis: Likely upper respiratory infection, otitis media, sinusitis, viral infection, bronchitis, pharyngitis and other (Strep throat) Lab Data Attestation: I reviewed the patient's lab results. Lab results narrative: Rapid strep negative Labs: Lab Results 08/17/24 Range/Units 16:44 POC Grp A Strep Screen Negative (Negative) Critical Care Time Critical Care Time Critical Care Time: No Discharge Plan Discharge Clinical Impression: Sinusitis Qualifiers: Sinusitis location: unspecified location Chronicity: acute Recurrence: non- recurrent Qualified Code(s): J01.90 - Acute sinusitis, unspecified Patient Disposition: Home, Self-Care Condition: Stable Instructions: Antibiotic Form, Sinusitis (ED) Additional Instructions: Susan's rapid strep swab was negative today at [facility]. You will be notified in a few days if the culture comes back positive for strep, and appropriate antibiotics will be called in for her at that time. Please give the doxycycline as prescribed until gone. Continue sldj-hdc-[id number] medication as needed. Follow up with your PCP in 3 days if symptoms are not improving. Go to the ER immediately if she has any difficulty breathing or swallowing. Your blood pressure was elevated above 120/80 today at Urgent Care. This puts you above the threshold for follow up. Please schedule a followup visit with your personal physician as soon as possible, for further evaluation and treatment. Even blood pressure exceeding 120/80 may indicate pre-hypertension. Patient Language: Tunisian Prescriptions: New doxycycline hyclate 100 mg tablet 100 mg PO BID 7 Days Qty: 14 0RF No Action fluticasone propionate 50 mcg/actuation spray,suspension 50 mcg INTRANASAL DIRECTED fluoxetine 20 mg capsule 20 mg PO QPM fluoxetine 40 mg capsule 40 mg PO DAILY levothyroxine 100 mcg tablet 100 mcg PO DAILY L norgest/e.estradiol-e.estrad [Simpesse] 0.15 mg-30 mcg (84)/10 mcg (7) tablets,dose pack,3 month 1 tablet PO DAILY lorazepam 1 mg tablet 1 mg PO BID Follow-up/Referrals: Adi,Halle Underwood, SEAT [employer]IMMER [Primary Care Provider] - Time of Disposition: 16:47
[2024-08-17 16:47] LABS: EDSTREPNEGPOS1 Negative (Negative)
== END 2024-08-17 16:49 | disposition home or self-care (01) ==
PROVIDERS: Emergency Provider Nurse Practitioner
DX: J01.90 Acute sinusitis, unspecified (principal); E11.9 Type 2 diabetes mellitus without complications; E03.9 Hypothyroidism, unspecified; K21.9 Gastro-esophageal reflux disease without esophagitis; F41.9 Anxiety disorder, unspecified; G93.40 Encephalopathy, unspecified; F81.9 Developmental disorder of scholastic skills, unspecified
CPT/HCPCS: 87081; 87880; 99213; G0463

== ENCOUNTER 2024-10-11 09:18 | Emergency (ER) | payer MEDICARE, MEDICAID, SELFPAY ==
[2024-10-11 09:27] VITALS: BP 130/85; PULSE 102; RESP 20; TEMP 36.7; O2SAT 99
--- NOTE | 2024-10-11 10:03 | ED.URI ---
HPI - URI/Sore Throat General Chief Complaint: Upper Respiratory Infection Stated Complaint: Sinus Infection Symptoms Time Seen by Provider: 10/11/24 09:52 History of Present Illness HPI Narrative: 29 year of female here with complaints of sore throat, ear congestion, nasal congestion headache that started on 09/28. using Mucinex with some relief. Fever in the beginning but not now. Sick contacts include family members in the house with similar symptoms that started prior to hers. Did not test for covid or flu. Dry cough noted denies sob Related Data Home Medications ?Medication ?Instructions ?Recorded ?Confirmed ?Last Taken ?Type L norgest/E estradiol-E estrad 1 tablet PO DAILY 06/10/23 10/11/24 Unknown History 0.15 mg-30 mcg (84)/10 mcg(7) tabs,3mos (Simpesse) fluoxetine 40 mg capsule 40 mg PO DAILY 06/10/23 10/11/24 Unknown History levothyroxine 100 mcg tablet 100 mcg PO DAILY 06/10/23 10/11/24 Unknown History fluticasone propionate 50 50 mcg intranasal DIRECTED 12/17/23 10/11/24 Unknown History mcg/actuation nasal spray,suspension lorazepam 1 mg tablet 1 mg PO BID 02/08/24 10/11/24 Unknown History fluoxetine 20 mg capsule 20 mg PO QPM 08/05/24 10/11/24 Unknown History Allergies Allergy/AdvReac Type Severity Reaction Status Date / Time Penicillins Allergy Mild Rash Verified 10/11/24 09:25 latex Allergy Unknown RASH Verified 10/11/24 09:25 morphine Allergy Unknown Irritable Verified 10/11/24 09:25 Sulfa (Sulfonamide Allergy Unknown HIVES Verified 10/11/24 09:25 Antibiotics) cetirizine AdvReac Unknown HYPERACTIVI Verified 10/11/24 09:25 TY amphetamine (From Adderall) AdvReac Drowsy Verified 10/11/24 09:25 dextroamphetamine (From AdvReac Drowsy Verified 10/11/24 09:25 Adderall) Review of Systems Review of Systems: All systems reviewed & are unremarkable except as noted in HPI and below Constitutional: Constitutional: Reports headache(s) Eyes: Eyes: Reports as per HPI ENT: Reports headache(s), Reports post nasal drip and Reports sinus pressure Cardiovascular: Cardiovascular: Reports as per HPI Respiratory: Respiratory: Reports as per HPI Genitourinary: Genitourinary: Reports as per HPI Musculoskeletal: Musculoskeletal: Reports as per HPI Integumentary/Breasts: Skin/Breast: Reports as per HPI Neurologic: Reports headache(s) Psychiatric: Psychiatric: Reports as per HPI Endocrine: Endocrine: Reports as per HPI Hematologic/Lymphatic: Hematologic/Lymphatic: Reports as per HPI Allergic/Immunologic: Allergic/Immunologic: Reports as per HPI [facility] Past Medical History Medical History (Updated 10/11/24 @ 10:05 by Perri Higgins APRN) Anxiety Encephalopathy GERD (gastroesophageal reflux disease) Hypothyroidism Learning disabilities Non-insulin dependent diabetes mellitus Seasonal allergic rhinitis Surgical History Surgical History No significant past surgical history Family History Family History Other No significant family history Social History Social History Smoking status: Never smoker Tobacco type: cigarettes Second hand tobacco smoke exposure: No Alcohol intake: never Substance use: never Substance use type: does not use Living arrangements: with family Occupation/Education: other Additional occupation/education comments: disable Gender identity (if verbalized by the patient): Female Exam Const: General: cooperative, healthy appearing, comfortable, no acute distress and well developed Orientation/consciousness: patient oriented x3 HENMT: Head: normal to inspection Face/Nose/Sinus: sinus tenderness Face and sinus: sinus tenderness Throat: posterior oropharynx abnormal (erythema) Eyes: General: appearance normal, both eyes and all related structures Resp: Effort & Inspection: normal respiratory effort and able to speak in complete sentences Auscultation: clear to auscultation bilaterally Cardio: Rate: regular rate Rhythm: regular rhythm Heart sounds: S1 normal heart sound present and S2 normal heart sound present Skin: General skin exam: normal color Neuro: General: patient oriented x3 Cognition (Neuro): normal cognition Speech: normal speech Psych: Mental Status: mental status grossly normal Course Course Level of Care: Express Care Visit Vital Signs Vital signs: Vital Signs Temperature 98.1 F 10/11/24 09:27 Pulse Rate 102 H 10/11/24 09:27 Respiratory Rate 20 10/11/24 09:27 Blood Pressure 130/85 10/11/24 09:27 Pulse Oximetry 99 10/11/24 09:27 Temperature 98.1 F 10/11/24 09:27 Pulse Rate 102 H 10/11/24 09:27 Respiratory Rate 20 10/11/24 09:27 Blood Pressure 130/85 10/11/24 09:27 Pulse Oximetry 99 10/11/24 09:27 MDM - URI/Sore Throat MDM Narrative Medical decision making narrative: 29-year-old female HPI is noted. Differentials include but not limited to below. Symptoms began on September 28 no need for influenza or COVID testing at this time as symptoms have been going on for 13 days. Symptoms have been persistent and not got any better with [id number] treatment. Sinus tenderness indicate acute sinusitis. Lungs are clear and patient speaking in full sentences. Patient has tried mnmg-uyc-[id number] treatment for 13 days. Will give doxycycline at this time. As patient is allergic to penicillins. Symptomatic treatment also encouraged. To return with any concerns to return to the ER with emergent concerns. Differential Diagnosis Differential diagnosis: Likely upper respiratory infection, sinusitis, viral infection, influenza and pharyngitis Medical Records Attestation: I reviewed the patient's medical records. Discharge Plan Discharge Clinical Impression: Acute bacterial sinusitis Patient Disposition: Home, Self-Care Condition: Stable Instructions: Antibiotic Form, Sinusitis (ED) Additional Instructions: Antibiotics as prescribed. Use dextromethorphan with guaifenesin as needed for cough. Tylenol as needed for fever or headaches. return with concerns to ER with emergent concerns such as severe sob or any other emergent concerns. Patient Language: Italian Prescriptions: New doxycycline hyclate 100 mg capsule 100 mg PO BID 7 Days Qty: 14 0RF dextromethorphan-guaifenesin 5-100 mg/5 mL liquid 10 ml PO Q4-8H PRN (Reason: cough) Qty: 500 0RF No Action fluticasone propionate 50 mcg/actuation spray,suspension 50 mcg INTRANASAL DIRECTED fluoxetine 20 mg capsule 20 mg PO QPM fluoxetine 40 mg capsule 40 mg PO DAILY levothyroxine 100 mcg tablet 100 mcg PO DAILY L norgest/e.estradiol-e.estrad [Simpesse] 0.15 mg-30 mcg (84)/10 mcg (7) tablets,dose pack,3 month 1 tablet PO DAILY lorazepam 1 mg tablet 1 mg PO BID Follow-up/Referrals: Yamileth Arora DO [Physician] - Time of Disposition: 10:10
--- NOTE | 2024-10-11 11:51 | ED_ITS ---
HPI - URI/Sore Throat General Chief Complaint: Upper Respiratory Infection Stated Complaint: Sinus Infection Symptoms Time Seen by Provider: 10/11/24 09:52 29 year of female here with complaints of sore throat, ear congestion, nasal congestion headache that started on 09/28. using Mucinex with some relief. Fever in the beginning but not now. Sick contacts include family members in the house with similar symptoms that started prior to hers. Did not test for covid or flu. Dry cough noted denies sob Related Data Home Medications ?Medication ?Instructions ?Recorded ?Confirmed ?Last Taken ?Type L norgest/E estradiol-E estrad 1 tablet PO DAILY 06/10/23 10/11/24 Unknown History 0.15 mg-30 mcg (84)/10 mcg(7) tabs,3mos (Simpesse) fluoxetine 40 mg capsule 40 mg PO DAILY 06/10/23 10/11/24 Unknown History levothyroxine 100 mcg tablet 100 mcg PO DAILY 06/10/23 10/11/24 Unknown History fluticasone propionate 50 50 mcg intranasal DIRECTED 12/17/23 10/11/24 Unknown History mcg/actuation nasal spray,suspension lorazepam 1 mg tablet 1 mg PO BID 02/08/24 10/11/24 Unknown History fluoxetine 20 mg capsule 20 mg PO QPM 08/05/24 10/11/24 Unknown History Allergies Allergy/AdvReac Type Severity Reaction Status Date / Time Penicillins Allergy Mild Rash Verified 10/11/24 09:25 latex Allergy Unknown RASH Verified 10/11/24 09:25 morphine Allergy Unknown Irritable Verified 10/11/24 09:25 Sulfa (Sulfonamide Allergy Unknown HIVES Verified 10/11/24 09:25 Antibiotics) cetirizine AdvReac Unknown HYPERACTIVI Verified 10/11/24 09:25 TY amphetamine (From Adderall) AdvReac Drowsy Verified 10/11/24 09:25 dextroamphetamine (From AdvReac Drowsy Verified 10/11/24 09:25 Adderall) Review of Systems Review of Systems: All systems reviewed & are unremarkable except as noted in HPI and below Constitutional: Constitutional: Reports headache(s) Eyes: Eyes: Reports as per HPI ENT: Reports headache(s), Reports post nasal drip and Reports sinus pressure Cardiovascular: Cardiovascular: Reports as per HPI Respiratory: Respiratory: Reports as per HPI Genitourinary: Genitourinary: Reports as per HPI Musculoskeletal: Musculoskeletal: Reports as per HPI Integumentary/Breasts: Skin/Breast: Reports as per HPI Neurologic: Reports headache(s) Psychiatric: Psychiatric: Reports as per HPI Endocrine: Endocrine: Reports as per HPI Hematologic/Lymphatic: Hematologic/Lymphatic: Reports as per HPI Allergic/Immunologic: Allergic/Immunologic: Reports as per HPI [facility] Past Medical History Medical History (Updated 10/11/24 @ 10:05 by Perri Higgins APRN) Anxiety Encephalopathy GERD (gastroesophageal reflux disease) Hypothyroidism Learning disabilities Non-insulin dependent diabetes mellitus Seasonal allergic rhinitis Surgical History Surgical History No significant past surgical history Family History Family History Other No significant family history Social History Social History Smoking status: Never smoker Tobacco type: cigarettes Second hand tobacco smoke exposure: No Alcohol intake: never Substance use: never Substance use type: does not use Living arrangements: with family Occupation/Education: other Additional occupation/education comments: disable Gender identity (if verbalized by the patient): Female Exam Const: General: cooperative, healthy appearing, comfortable, no acute distress and well developed HENMT: Head: normal to inspection Face/Nose/Sinus: sinus tenderness Face and sinus: sinus tenderness Throat: posterior oropharynx abnormal (erythema) Eyes: General: appearance normal, both eyes and all related structures Resp: Effort & Inspection: normal respiratory effort and able to speak in complete sentences Auscultation: clear to auscultation bilaterally Cardio: Rate: regular rate Rhythm: regular rhythm Heart sounds: S1 normal heart sound present and S2 normal heart sound present Skin: General skin exam: normal color Neuro: General: patient oriented x3 Cognition (Neuro): normal cognition Speech: normal speech Psych: Mental Status: mental status grossly normal Course Course Level of Care: Express Care Visit Vital Signs Vital signs: Vital Signs Temperature 98.1 F 10/11/24 09:27 Pulse Rate 102 H 10/11/24 09:27 Respiratory Rate 20 10/11/24 09:27 Blood Pressure 130/85 10/11/24 09:27 Pulse Oximetry 99 10/11/24 09:27 Temperature 98.1 F 10/11/24 09:27 Pulse Rate 102 H 10/11/24 09:27 Respiratory Rate 20 10/11/24 09:27 Blood Pressure 130/85 10/11/24 09:27 Pulse Oximetry 99 10/11/24 09:27 MDM - URI/Sore Throat MDM Narrative Medical decision making narrative: 29-year-old female HPI is noted. Differentials include but not limited to below. Symptoms began on September 28 no need for influenza or COVID testing at this time as symptoms have been going on for 13 days. Symptoms have been persistent and not got any better with [id number] treatment. Sinus tenderness indicate acute sinusitis. Lungs are clear and patient speaking in full sentences. Patient has tried [id number] treatment for 13 days. Will give doxycycline at this time. As patient is allergic to penicillins. Symptomatic treatment also encouraged. To return with any concerns to return to the ER with emergent concerns. Differential Diagnosis Differential diagnosis: Likely upper respiratory infection, sinusitis, viral infection and influenza Medical Records Attestation: I reviewed the patient's medical records. Discharge Plan Discharge Clinical Impression: Acute bacterial sinusitis Patient Disposition: Home, Self-Care Condition: Stable Instructions: Antibiotic Form, Sinusitis (ED) Additional Instructions: Antibiotics as prescribed. Use dextromethorphan with guaifenesin as needed for cough. Tylenol as needed for fever or headaches. return with concerns to ER with emergent concerns such as severe sob or any other emergent concerns. Patient Language: Malay Prescriptions: New doxycycline hyclate 100 mg capsule 100 mg PO BID 7 Days Qty: 14 0RF dextromethorphan-guaifenesin 5-100 mg/5 mL liquid 10 ml PO Q4-8H PRN (Reason: cough) Qty: 500 0RF No Action fluticasone propionate 50 mcg/actuation spray,suspension 50 mcg INTRANASAL DIRECTED fluoxetine 20 mg capsule 20 mg PO QPM fluoxetine 40 mg capsule 40 mg PO DAILY levothyroxine 100 mcg tablet 100 mcg PO DAILY L norgest/e.estradiol-e.estrad [Simpesse] 0.15 mg-30 mcg (84)/10 mcg (7) tablets,dose pack,3 month 1 tablet PO DAILY lorazepam 1 mg tablet 1 mg PO BID Follow-up/Referrals: Yamileth Arora DO [Physician] - Time of Disposition: 10:10
== END 2024-10-11 10:32 | disposition home or self-care (01) ==
PROVIDERS: Emergency Provider Nurse Practitioner Family
DX: J01.90 Acute sinusitis, unspecified (principal); B96.89 Other specified bacterial agents as the cause of diseases classified elsewhere; E03.9 Hypothyroidism, unspecified; E11.9 Type 2 diabetes mellitus without complications; Z79.899 Other long term (current) drug therapy
CPT/HCPCS: 99213; G0463

== ENCOUNTER 2025-04-27 16:54 | Emergency (ER) | payer OTHER, MEDICARE, MEDICAID, SELFPAY ==
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
--- OUTSIDE RECORDS SUMMARY | 2025-04-27 16:56 | XMS_ITS | Clinical Summary ---
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 Phone Farzana Machado MD Primary Care Provider + Allergies Active Allergy Reactions Criticality Noted Date Comments Dextroamphetamine-Amphetamine Fatigue Low 2023 Penicillins Hives High Reaction: Hives, Sulfa (Sulfonamide Antibiotics) Swelling Medium 08/23 Medications fluticasone propionate (FLONASE) 50 mcg/actuation nasal spray SHAKE AND USE 2 SPRAYS INTO EACH NOSTRIL EVERY DAY Active FLUoxetine (PROzac) 20 mg capsule Take by mouth daily 4 Active FLUoxetine (PROzac) 40 mg capsule Take by mouth daily 4 Active cetirizine (ZyrTEC) 10 mg tablet TAKE 1 TABLET BY MOUTH EVERY DAY AT BEDTIME FOR 30 DAYS 4 Active glipiZIDE XL (GLUCOTROL XL) 10 mg 24 hr tablet Take 1 tablet (10 mg total) by mouth daily 4 Active LORazepam (ATIVAN) 1 mg tablet Take 2 tablets (2 mg total) 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 4 Active Ozempic 0.25 mg or 0.5 mg (2 mg/3 mL) pen injector injectionIndicat ions:Type 2 diabetes mellitus treated without insulin (HCC) Inject 0.5 mg under the skin every 7 days 3 mL 11 4 06/23/20 25 Active Additional Information Patient not taking.Reported on 04/18/2025 levothyroxine (SYNTHROID) 100 mcg tablet Take 1 tablet (100 mcg total) by mouth daily 30 tablet 11 4 06/23/20 25 Active Additional Information Patient not taking.Reported on 04/18/2025 FIASP 100 unit/mL (3 mL) pen for injectionIndicat ions:Diabetes mellitus due to underlying condition with other specified complication, unspecified whether terminal operator insulin use (HCC) Inject 1 units for every 50 points > 150 mg/dl. Max total daily dose: 10 units 3 mL 3 4 Active blood-glucose sensor ([employer] SpA G7 Sensor) deviceIndication s:Type 2 diabetes mellitus treated without insulin (HCC) Will use 3 sensors per month to check blood sugar continuously. 3 each 11 4 Active semaglutide (OZEMPIC) 1 mg/dose (4 mg/3 mL) pen injector injection Inject 1 mg weekly. 3 mL 11 5 Active Additional Information Patient not taking.Reported on 04/18/2025 blood-glucose meter kit Use as needed to check blood sugar as back up for CGM 1 kit 5 Active blood glucose diagnostic (glucose blood) strip Check blood sugar as needed as back up for CGM 50 each 2 5 Active lancets misc Use to check blood sugar as needed as a back up for CGM 50 each 1 5 Active insulin aspart (NovoLOG) 100 unit/mL (3 mL) pen for injectionIndicat ions:Diabetes mellitus due to underlying condition with other specified complication, unspecified whether group home insulin use (HCC) Inject 5 Units under the skin daily as needed (as directed) 1 unit for every 50 above 200 BGL 200-250: 1 unit 250-300: 2 units 300-350: 3 units 350-400: 4 units 400+: 5 units. Total daily dose: 10 units 3 mL 1 5 Active cloNIDine (CATAPRES) 0.2 mg tablet Take 1 tablet (0.2 mg total) by mouth nightly 5 Active fluconazole (DIFLUCAN) 100 mg tablet TAKE 1 TABLET BY MOUTH 3 TIMES A WEEK NEEDED FOR 90 DAYS Active levonorgestrel & ethinyl estradiol (AMETHIA) 0.15 mg-30 mcg tablets,dose pack,3 month Take 1 tablet by mouth daily 5 Active tirzepatide (Mounjaro) 7.5 mg/0.5 mL pen injector injectionIndicat ions:Type 2 diabetes mellitus without complication, without long-term current use of insulin (HCC) Inject 0.5 mL (7.5 mg total) under the skin once a week Inject 7.5 mg every week for 1 month. If tolerated well, then increase to 10 mg weekly 2 mL 11 Active tirzepatide (Mounjaro) 10 mg/0.5 mL pen injector injectionIndicat ions:Type 2 diabetes mellitus without complication, without long-term current use of insulin (HCC) Inject 0.5 mL (10 mg total) under the skin once a week Inject 7.5 mg every week for 1 month. If tolerated well, then increase to 10 mg weekly 2 mL 5 Active Active Problems Problem Noted Date Diagnosed Date History of mental disorder 10/31/2013 Development delay 10/31/2013 Encounters Date Type Department Care Team Description 04/18/2025 6:30 PM CDT Lab [facility] [address] [place] [address] Type 2 diabetes mellitus without complication, without long-term current use of insulin (HCC); Atypical diabetes mellitus (HCC); Hypothyroidism, unspecified type 04/18/2025 4:00 PM CDT Office Visit [facility]ocr[facility] Metabolism and Lipid [address] [place] [address] [place] [phone] Lorenza Mahan MD Type 2 diabetes mellitus without complication, without long-term current use of insulin (HCC) (Primary Dx); Atypical diabetes mellitus (HCC); Hypothyroidism, unspecified type 02/07/2025 Orders Only [facility] Metabolism and Lipid [address] [place] [address] [place] [phone] Erin Mckeon RMA Diabetes mellitus due to underlying condition with other specified complication, unspecified whether terminal operator insulin use (HCC) 01/28/2025 Telephone [facility] Endocrinology Metabolism and Lipid [address] [place] [address] Vernell Brizuela RN from Last 3 Months Family History Medical History Relation Name Comments Asthma Maternal Grandfather Diabetes Maternal Grandfather Relation Name Status Comments Maternal Grandfather Social History Tobacco Use Types Packs/Day Years Used Date Smoking Tobacco: Never Smokeless Tobacco: Never Comments Unknown Sex and Gender Information Value Date Recorded Sex Assigned at Not on file 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 Gender Identity Not on file Sexual Orientation Not on file Obstetrics History Last Filed Vital Signs Vital Sign Reading Time Taken Comments Blood Pressure 96/61 04/18/2025 3:31 PM CDT Pulse 97 04/18/2025 3:31 PM CDT Temperature 36.7 C (98 F) 04/18/2025 3:31 PM CDT Respiratory Rate - - Oxygen Saturation 96% 06/08/2015 8:03 AM CDT Inhaled Oxygen Concentration - - Weight 101.3 kg (223 lb 6.4 oz) 04/18/2025 3:31 PM CDT Height 170.2 cm (5' 7) 04/18/2025 3:31 PM CDT Body Mass Index 34.99 04/18/2025 3:31 PM CDT Plan of Treatment Health Maintenance Due Date Last Done Comments Cervical Cancer Screening 1997 Depression Screening 1997 Hepatitis C Screening 1997 Dilated Eye Exam 1997 Foot Exam 1997 Regular Well Visit/Exam 18-64 2015 Pneumococcal vaccine <65 (1 of 2 - PCV) 2016 DTaP/Tdap/Td Vaccine (6 - Td or Tdap) 04/01/2024 04/01/2014, 05/31/2004, 1997, Additional history exists HPV Vaccines (1 - 3-dose SCD M series) 2024 Covid-19 Vaccine (4 - 2024-2 6 season) 2025 09/14/2021, 11/20/2020, 10/30/2020 Influenza Vaccine (#1) 2025 , 06/13/2006, 07/06/2004, Additional history exists Hemoglobin A1C 10/18/2025 04/18/2025, 06/21/2024 Albumin Creatinine Ratio, Urine 04/18/2026 , 07/09/2024 Lipid Panel 04/18/2026 04/18/2025 eGFR 04/18/2026 04/18/2025 Hepatitis B Screening Completed 1997 , 1997, 1997 Varicella Vaccines Completed 04/01/2014, 06/28/2002 Procedures Procedure Name Priority Date/Time Associated Diagnosis Comments EGFR Routine 04/18/2025 5:07 PM CDT Type 2 diabetes mellitus without complication, without long-term current use of insulin (HCC) Atypical diabetes mellitus (HCC) T4, FREE Routine 04/18/2025 5:07 PM CDT Hypothyroidism, unspecified type BLOOD MISC TO [place]ILTON Routine 04/18/2025 5: 07 PM CDT Type 2 diabetes mellitus without complication, without long-term current use of insulin (HCC) Atypical diabetes mellitus (HCC) C-PEPTIDE Routine 04/18/2025 5:07 PM CDT Type 2 diabetes mellitus without complication, without long-term current use of insulin (HCC) Atypical diabetes mellitus (HCC) BASIC METABOLIC PANEL Routine 04/18/2025 5:07 PM CDT Type 2 diabetes mellitus without complication, without long-term current use of insulin (HCC) Atypical diabetes mellitus (HCC) LIPID PANEL Routine 04/18/2025 5:07 PM CDT Type 2 diabetes mellitus without complication, without long-term current use of insulin (HCC) Atypical diabetes mellitus (HCC) THYROID FUNCTION CASCADE Routine 04/18/2025 5:07 PM CDT Hypothyroidism, unspecified type ALBUMIN CREATININE RATIO, URINE Routine 04/18/2025 5:07 PM CDT Type 2 diabetes mellitus without complication, without long-term current use of insulin (HCC) Atypical diabetes mellitus (HCC) POCT HEMOGLOBIN A1C Routine 04/18/2025 3 :45 PM CDT Type 2 diabetes mellitus without complication, without long-term current use of insulin (HCC) POCT GLUCOSE Routine 04/18/2025 3:44 PM CDT Type 2 diabetes mellitus without complication, without long-term current use of insulin (HCC) from Last 3 Months Results * eGFR (04/18/2025 5:07 PM CDT) eGFR 89 >=60 mL/min/1. 73 m2 Comment: Interpretive Data Reference Interval Normal >/= 90 mL/min/1.73m2 Mildly decreased* 60 - 89 mL/min/1.73m2 Mildly to moderately decreased 45 - 59 mL/min/1.73m2 Moderately to severely decreased 30 - 44 mL/min/1.73m2 Severely decreased 15 - 29 mL/min/1.73m2 Kidney Failure < 15 mL/min/1.73m2 *Relative to young adult level Estimated glomerular filtration rate is determined by the 2020 CKD-EPI equation recommended by the National Kidney Foundation (A Unifying Approach to GFR Estimation: Recommendations of the NKF-ASK Task Force on Reassessing the Inclusion of Race in Diagnosing Kidney Disease, JASN 2020). The CKD-EPI equation should not be used for patients with unstable renal function and has not been validated in children and those over 70. Current interpretive data was last reviewed 2021. Blood 04/18/2025 5:07 PM CDT 04/18/2025 5:42 PM CDT us Lorenza Mahan MD LAB BLOOD ORDERABLES Final Res ult [facility] [address] [facility] Department [place] [address] * (ABNORMAL) Thyroid Function Dewey (04/18/2025 5:07 PM CDT) TSH 10.30(H) 0.30 - 4.20 mcIUnit/mL Blood 04/18/2025 5:07 PM CDT 04/18/2025 5:34 PM CDT us Lorenza Mahan MD LAB BLOOD ORDERABLES Final Res ult Performing Organization Address [facility] [place] [address] * (ABNORMAL) Albumin Creatinine Ratio, Urine (04/18/2025 5:07 PM CDT) Albumin Ur 205.8 mg/L Comment: Interpretive Data No reference range established. Current interpretive data was last revised 2019. Creatinine Ur 183.1 mg/dL [facility] Comment: Interpretive Data No reference range established. Current interpretive data was last revised 2019. Albumin Creatinine Ratio, Ur 112(H) 1 - 29 mg/g [facility] Urine 04/18/2025 5:07 PM CDT 04/18/2025 5:34 PM CDT Lorenza Mahan MD LAB URINE ORDERABLES Final Res ult Performing Organization Address [facility] Co de Phone Number [facility] [place] [address] * (ABNORMAL) C-peptide (04/18/2025 5:07 PM CDT) [facility] C-peptide 10.20(H) 1.10 - 4.40 ng/mL Blood 04/18/2025 5:07 PM CDT 04/18/2025 5:34 PM CDT Lorenza Mahan MD LAB BLOOD ORDERABLES Final Res ult Performing Organization Address [facility] Co de Phone Number [facility] [place] [address] * (ABNORMAL) T4, free (04/18/2025 5:07 PM CDT) Free T4 0.84(L) 0.90 - 1.70 ng/dL Blood 04/18/2025 5:07 PM CDT 04/18/2025 5:42 PM CDT Narrative [facility] - 04/18/2025 6:46 PM CDT This test was reflexed from a TSH result. us Lorenza Mahan MD LAB BLOOD ORDERABLES Final Res ult [facility] [address] [facility] [place] [address] * (ABNORMAL) Lipid panel (04/18/2025 5:07 PM CDT) Cholesterol 159 30 - 199 mg/dL Comment: Interpretive Data Ages < or = 19 years Acceptable: <170 mg/dL Borderline high: 170-199 mg/dL High: >or= 200 mg/dL Ages > or = 20 years Desirable: <200 mg/dL Borderline high: 200-239 mg/dL High: >or= 240 mg/dL Literature References: 1. Expert Panel on Integrated Guidelines for Cardiovascular Health and Risk Reduction in Children and Adolescents. Pediatrics 2011;128:S213 2. NCEP Expert Panel. Circulation 2004;110:227 Current Interpretive Data was last revised on 2018. Triglycerides 165(H) <=149 mg/dL [facility] Comment: Interpretive Data Ages < or = 9 years Acceptable: <75 mg/dL Borderline high: 75-99 mg/dL High: >or= 100 mg/dL Ages 10 to 20 years Acceptable: <90 mg/dL Borderline high: 90-129 mg/dL High: >or= 130 mg/dL Ages > or = 20 years Desirable: <150 mg/dL Borderline high: 150-199 mg/dL High: 200-499 mg/dL Very high: >or= 499 mg/dL Literature References: 1. Expert Panel on Integrated Guidelines for Cardiovascular Health and Risk Reduction in Children and Adolescents. Pediatrics 2011;128:S213 2. NCEP Expert Panel. Circulation 2004;110:227 Current Interpretive Data was last revised on 2018. HDL 52 >=40 mg/dL [facility] Comment: Interpretive Data Ages < or = 19 years Acceptable: >45 mg/dL Borderline low: 40-45 mg/dL Low: <40 mg/dL Ages > or = 20 years Desirable: >or= 60 mg/dL Low: <40 mg/dL Literature References: 1. Expert Panel on Integrated Guidelines for Cardiovascular Health and Risk Reduction in Children and Adolescents. Pediatrics 2011;128:S213 2. NCEP Expert Panel. Circulation 2004;110:227 Current Interpretive Data was last revised on 2018. LDL, calculated 79 <=129 mg/dL [facility] Comment: Interpretive Data Ages < or = 19 years Acceptable: <110 mg/dL Borderline high: 110-129 mg/dL High: >or= 130 mg/dL Ages > or = 20 years Optimal: <100 mg/dL Near optimal: 100-129 mg/dL Borderline high: 130-159 mg/dL High: >160 mg/dL Calculated using the Abdiaziz LDL-C estimating equation. This equation was implemented on 2024. Prior to this date LDL-C was estimated using the Friedewald equation. Literature References: 1. Expert Panel on Integrated Guidelines for Cardiovascular Health and Risk Reduction in Children and Adolescents. Pediatrics 2011;128:S213 2. NCEP Expert Panel. Circulation 2004;110:227 3. Abdiaziz Albert et al. MIKHAIL Cardiol. 2019December 19;5(5):540-548. doi: 10.1001/jamacardio.2020.0013 Current Interpretive Data was last revised on 2024. Non-HDL Cholesterol 107 mg/dL [facility] Comment: Interpretive Data Ages < or = 19 years Acceptable: <120 mg/dL Borderline high: 120-144 mg/dL High: >145 mg/dL Ages > or = 20 years When triglycerides are >200 mg/dL, Non-HDL cholesterol is a secondary target of therapy with treatment goals that are 30 mg/dL greater than the LDL cholesterol target. Literature References: 1. Expert Panel on Integrated Guidelines for Cardiovascular Health and Risk Reduction in Children and Adolescents. Pediatrics 2011;128:S213 2. NCEP Expert Panel. Circulation 2004;110:227 Current Interpretive Data was last revised on 2018. Chol/HDL ratio 3 [facility] Blood 04/18/2025 5:07 PM CDT 04/18/2025 5:34 PM CDT Narrative [facility] - 04/18/2025 6:18 PM CDT These lab test should be done fasting. This means do not eat or drink for at least 12 hours prior to getting your blood drawn. Lorenza Mahan MD LAB BLOOD ORDERABLES Final Res ult Performing Organization Address [facility] Co de Phone Number [facility] [place] [address] * Basic metabolic panel (04/18/2025 5:07 PM CDT) [facility] Sodium 145 135 - 145 mmol/L Potassium, pl 3.9 3.3 - 4.9 mmol/L [facility] Chloride 107 97 - 110 mmol/L [facility] CO2 29 22 - 32 mmol/L [facility] Anion gap 9 2 - 15 mmol/L [facility] BUN 14 6 - 25 mg/dL [facility] Creatinine 0.91 0.60 - 1.10 mg/dL [facility] Glucose 136 70 - 199 mg/dL [facility] Comment: Interpretive Data Fasting glucose >/= 126 mg/dl is diagnostic for diabetes. Fasting is defined as no caloric intake for at least 8 hours. Fasting glucose between 100 mg/dl to 125 mg/dl is diagnostic of prediabetes. In a patient with classic symptoms of hyperglycemia or hyperglycemic crisis, a random glucose >/= 200 mg/dl is diagnostic for diabetes. In the absence of unequivocal hyperglycemia, results should be confirmed by repeat testing. The classification and Diagnosis of Diabetes Diabetes Care 2021; 46: S19-S40. Current interpretive data was last revised 2022. Calcium 9.9 8.5 - 10.3 mg/dL [facility] Blood 04/18/2025 5:07 PM CDT 04/18/2025 5:34 PM CDT us Lorenza Mahan MD LAB BLOOD ORDERABLES Final Res ult Performing Organization Address [facility] Co de Phone Number [facility] [place] [address] * (ABNORMAL) POCT hemoglobin A1c (04/18/2025 3:45 PM CDT) Hemoglobin A1C, POC 6.9(A) 4.0 - 5.6 % Blood 04/18/2025 3:45 PM CDT us Lorenza Mahan MD POINT OF CARE TEST ORDERABLES Final Result * POCT glucose (04/18/2025 3:44 PM CDT) Glucose Blood, POC 158 Normal Fasting 70 - 100, Random <200 mg/dL Blood 04/18/2025 3:44 PM CDT us Lorenza Mahan MD POINT OF CARE TEST ORDERABLES Final Result from Last [address] [facility] MEDICARE [employer] MEDICARE [employer] Care Teams Cdl Dedicated Truck Driver Relationship Specialty Start Date End Date Farzana Machado MD PCP - General Family Medicine 02/02/18
--- OUTSIDE RECORDS SUMMARY | 2025-04-27 16:56 | XMS_ITS | Clinical Summary ---
Author Organization [facility] Address [address] [place] [address] Phone Care Team Providers Care Consolidator Name Role Phone Halle Joshi APRN, STRETCHER OPERATOR Primary Care Provider [phone] Allergies Active Allergy Reactions Criticality Noted Date Comments Codeine Unknown 02/27/2025 Morphine Unknown 02/27/2025 Penicillins Unknown 02/27/2025 Sulfa Antibiotics Hives 02/27/2025 Medications cetirizine (ZyrTEC) 10 MG Tablet take 1 tablet by mouth every day at bedtime 5 Active FLUoxetine (PROzac) 20 MG Capsule Take 20 mg by mouth daily. 5 Active FLUoxetine (PROzac) 40 MG Capsule Take 40 mg by mouth daily. 5 Active fluticasone (FLONASE) 50 MCG/ACT Suspension SHAKE AND USE 2 SPRAYS INTO EACH NOSTRIL EVERY DAY 5 Active Insulin Aspart FlexPen 100 UNIT/ML Solution Pen-injector PLEASE SEE ATTACHED FOR DETAILED DIRECTIONS 5 Active Levonorgest-Et h Estrad -Day 0.15-0.03 &0.01 MG Tablet Take 1 Tablet by mouth daily. 5 Active levothyroxine (SYNTHROID) 100 MCG Tablet Take 100 mcg by mouth daily. 5 Active LORazepam (ATIVAN) 1 MG Tablet take 1 tablet by mouth three times a day as needed 5 Active rOPINIRole (REQUIP) 0.5 MG Tablet TAKE 2 TABLETS BY MOUTH EVERY DAY AT BEDTIME FOR 30 DAYS 5 Active Ozempic, 1 MG/DOSE, 4 MG/3ML Solution Pen-injector inject 1 mg subcutaneously weekly 05/02/202 5 Active Social History Tobacco Use Types Packs/Day Years Used Date Smoking Tobacco: Never Smokeless Tobacco: Never Tobacco Cessation:Counseling Given: Not Answered Alcohol Use Standard Drinks/Week Comments Never 0 (1 standard drink = 0.6 oz pur e alcohol) Comments Unknown Sex and Gender Information Value Date Recorded Sex Assigned at Not on file Legal Sex Female 10:55 AM CDT Gender Identity Not on file Sexual Orientation Not on file Plan of Treatment Upcoming Encounters Date Type Department Care Team (Late st Contact Info) Description 10/02/2025 9:30 AM BLADE GROOVER Office Visit [facility] - [facility]rology [facility] [address] [place] [phone] Viet Atkinson MD [address] [place] [phone] Health Maintenance Due Date Last Done Comments Hepatitis C Virus (HCV) Screening 1997 Pap Smear 2018 SARS-COV-2 Immunization ( season) 2024 09/14/2021, 11/20/2020, 10/30/2020 Human Papillomavirus (HPV) Immunization (1 - 3-dose SCDM series) 2024 Influenza Immunization (#1) 2025 06/09/2022 Respiratory Syncytial Virus (RSV) Immunization (Adult) (1 - 1-dose 75+ series) 2072 Hepatitis B Immunization Completed 998, 1997, 1997 TdaP Immunization Completed 04/01/2014 Meningococcal Immunization (ACWY) Completed 04/07/2015 Pneumococcal Immunization Combined Aged Out No longer eligible b ased on patient's age to complete this topic Rotavirus Immunization Aged Out No lo nger eligible based on patient's age to complete this topic Insurance MEDICARE [place]ICAID [place] Care Teams Consolidator Relationship Specialty Start Date End Date Halle Joshi APRN, STRETCHER OPERATOR [address] [place] [id number] PCP - General Advanced Practice Nurse 02/27/25
--- OUTSIDE RECORDS SUMMARY | 2025-04-27 16:56 | XMS_ITS | Encounter Summary ---
Author Organization [facility] Address [address] [place] [address] Care Team Providers Care Rotor Plate Washer Name Role Phone Mindy Nevarez MD Primary Care Provider [phone] Encounter Details Date Type Department Care Team (Late st Contact Info) Description 08/07/2009 [facility] Outpatient Visit EXTERNAL NON-[facility] DEPT Arielle Yancey MD [address] [place] [address] Social History Tobacco Use Types Packs/Day Years Used Date Smoking Tobacco: Never Assessed Comments Unknown Sex and Gender Information Value Date Recorded Sex Assigned at Not on file Legal Sex Female 6:50 AM NETWORK SPECIALIST Gender Identity Not on file Sexual Orientation Not on file documented as of this encounter Plan of Treatment Not on file documented as of this encounter Visit Diagnoses Not on filedocumented in this encounter Care Teams Rotor Plate Washer Relationship Specialty Start Date End Date Mindy Nevarez MD PCP - General 10/22/09 documented as of this encounter
--- OUTSIDE RECORDS SUMMARY | 2025-04-27 16:56 | XMS_ITS | Clinical Summary ---
Author Organization [facility] Address [address] [place] [address] Care Team Providers Care Chair Installer Name Role Phone Mindy Nevarez MD Primary Care Provider [phone] Source Comments [facility],non-owned Affiliates and Associated Physician Practices is amultiple site organization consisting of ambulatory clinics and hospital sitesin [place], [place], [place] and [place]. This disclosure is being madepursuant to the Care Everywhere program and may not contain all information available regarding this patient. Last updated 18.[facility] Allergies Active Allergy Reactions Criticality Noted Date Comments Augmentin GI Discomfort Low 01/26/2009 Stomach pains Diphenhydramine 06/27/2015 hyperactive Morphine Systemic High 05/14/2013 Patient becomes very agitated and hyperactive. Very difficult for her to control herself. Other 01/05/2011 pepsi products make her hyper OK with coke products Penicillins Rash Low 01/26/2009 rash Acetaminophen Unknown 01/03/2011 Hyperactivity to the point of injuring herself--with all types Medications * Be aware that medications may not be up to date on this document. Alwaysverify current medications with the patient. cloNIDine (CATAPRES) 0.2 MG tablet Take 0.2 mg by mouth at bedtime. 1 Active levonorgestrel- ethinyl estradiol (SIDNEY-28) 0.15-30 MG-MCG tablet Take 1 Tab by mouth at bedtime. 1 Active Foot Care Products (SPENCO [employer]THOT[employer]ORTS) MISC Use 2 Each once daily 1 Each 0 6 Active fluticasone propionate (FLONASE) 50 MCG/ACT nasal spray [place] 2 Sprays into each nostril once daily 1 Bottle 3 6 Active Additional Information Patient taking differently:2 spray Each NostrilPRN, Reported on 07/25/2016 sertraline (ZOLOFT) 50 MG tablet Take 50 mg by mouth once daily Active polyethylene glycol 3350 (MIRALAX) powder Take 17 g by mouth once daily 289 g 3 7 Active Active Problems Problem Noted Date Diagnosed Date Dental caries 01/05/2011 Encephalopathy 03/18/2010 Attention deficit hyperactivity disorder (ADHD) 03/18/2010 BMI (body mass index), pediatric, 95-99% for age 0703/18/2010 Resolved Problems Problem Noted Date Diagnosed Date Resolved Date Allergic conjunctivitis 05/14/201303/21 Immunizations Immunization Administration Dates Next Due DPT 09/29/1998, 8,1997, 8 DTaP VACCINE IM (6wk-6yrs) 05/31/2004 HEP A PEDS 2 DOSE 12/12/2007,10/13/2006 HEP B VACCINE, PED/ADOL 1997,1997, HIB BOOSTER 09/29/1998, 8,1997, 8 INFLUENZA VACCINE 06/13/2006,07/06/2004,06/03/20 04 MENINGOCOCCAL ACWY (MCV4P) VAC IM 04/07/2015 MMR 05/31/2004,06/24/1998 POLIO IPV 05/31/2004 POLIO OPV 06/24/1998,1997,1997 PPD 05/31/2004,06/24/1998 TDAP (7yrs+) 04/01/2014 VARICELLA 04/01/2014,06/28/2002 Family History Medical History Relation Name Comments Anesthesia Reaction Maternal Grandmother Extreme nausea Amblyopia Maternal Uncle Antoni PTO Strabismus Maternal Uncle Antoni EOM surgery Myopia Mother Relation Name Status Comments Maternal Grandmother Maternal Uncle Antoni Mother Social History Tobacco Use Types Packs/Day Years Used Date Smoking Tobacco: Never Comments No Sex and Gender Information Value Date Recorded Sex Assigned at Not on file Legal Sex Female 6:50 AM SOFTWARE DEPLOYMENT ENGINEER Gender Identity Not on file Sexual Orientation Not on file Last Filed Vital Signs Vital Sign Reading Time Taken Comments Blood Pressure 132/76 04/07/2016 3:38 PM CDT Pulse 76 04/07/2016 3:38 PM CDT Temperature 37 C (98.6 F) 09/19/2016 2:13 PM SOFTWARE DEPLOYMENT ENGINEER Respiratory Rate 22 09/27/2015 7:24 AM SOFTWARE DEPLOYMENT ENGINEER Oxygen Saturation 98% 09/27/2015 7:24 AM SOFTWARE DEPLOYMENT ENGINEER Inhaled Oxygen Concentration - - Weight 105.5 kg (232 lb 9.6 oz) 09/19/2016 2:13 PM SOFTWARE DEPLOYMENT ENGINEER Height 172.7 cm (5' 8) 07/25/2016 1:54 PM SOFTWARE DEPLOYMENT ENGINEER Body Mass Index 35.37 07/25/2016 1:54 PM SOFTWARE DEPLOYMENT ENGINEER Plan of Treatment Health Maintenance Due Date Last Done Comments HIV SCREENING 2012 HEPATITIS C SCREENING 06/11/2015 DTAP/TDAP/TD VACCINES (7 - Td or Tdap) 04/01/2024 04/01/2014, 05/31/2004, 09/29/1998, Additional history exists HPV VACCINE (1 - 3-dose SCDM series) 2024 DEPRESSION SCREENING 08/21/2024 COVID-19 VACCINE (2023- season) 2025 INFLUENZA VACCINE (#1) 2025 6, 07/06/2004, 06/03/2004 ZOSTER VACCINE (1 of 2) 2047 HEPATITIS B VACCINE Completed 1997, 1997, 1997 HIB VACCINE Completed 09/29/1998, 11/21, 1997, Additional history exists MENINGOCOCCAL GROUPS A/C/Y/W VACCINE Completed 04/07/2015 MENINGOCOCCAL (Group B) VACCINE SHARED DECISION-MAKING Aged Out No longer eligible based on patient's age to complete this topic PNEUMOCOCCAL VACCINE Aged Out No long er eligible based on patient's age to complete this topic Goals Goal Patient Goal Type Associated Problems Recent Progress Patient-Stated? Author Exercise 3X per week (30 min per time) Exercise On track( 015 9:05 AM CDT) Mindy Finn MD Note: Caring for Your Overweight Child Get Moving: It is recommended that children and teens get physical activity for at least 1 hour per day on most (or better yet, all) days of the week. That may sound like a lot, especially if your child is not getting any physical activity now. But physical activity means more than exercise. It can mean playing games in the backyard, or washing the car. It can mean picking up leaves, or walking the dog. Add the healthy habit of physical activity to your family s schedule. When children take off weight through dieting alone, 80 percent of the loss is from fatty tissue and 20 percent is from muscle. Adding weight-resistance training to an exercise routine preserves the muscle tissue. Virtually every ounce dropped comes from fat. Once an adolescent meets her goal, regular exercise is essential for maintaining the desired weight. Where can I go for more information? [place] [employer] ( ) www.aap.org HealthyChildren.org www.healthychildren.org U.S. Department of Health and Human Services www.hhs.gov Website and free downloadable ulises for smartphones: http://www.VarVee.360Cities/ Use safety retraint in car Lifestyle On track( 016 1:58 PM SOFTWARE DEPLOYMENT ENGINEER) Yanique Cole RN Insurance MEDICAID - [place] MEDICAID [facility] [place] [address] Care Teams Chair Installer Relationship Specialty Start Date End Date Mindy Nevarez MD PCP - General 10/22/09
[2025-04-27 17:24] VITALS: BP 112/71; PULSE 104; RESP 18; TEMP 36.9; O2SAT 98
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
[2025-04-27 19:49] VITALS: BP 114/65; PULSE 66; RESP 18; O2SAT 100
== END 2025-04-27 19:51 | disposition home or self-care (01) ==
PROVIDERS: Emergency Provider Registered Nurse
DX: S50.01XA Contusion of right elbow, initial encounter (principal); S40.011A Contusion of right shoulder, initial encounter; F41.9 Anxiety disorder, unspecified; E11.9 Type 2 diabetes mellitus without complications; E03.9 Hypothyroidism, unspecified; K21.9 Gastro-esophageal reflux disease without esophagitis; F84.0 Autistic disorder; V43.62XA Car passenger injured in collision with other type car in traffic accident, initial encounter
CPT/HCPCS: 73030; 73080; 99284

== ENCOUNTER 2025-05-10 14:10 | Emergency (ER) | payer MEDICARE, MEDICAID, SELFPAY ==
[2025-05-10 14:39] VITALS: BP 168/91; PULSE 114; RESP 16; TEMP 36.7; O2SAT 98
--- NOTE | 2025-05-10 14:43 | ED.URI ---
HPI - URI/Sore Throat General Chief Complaint: Upper Respiratory Infection Stated Complaint: headache, sore throat, ear ache Time Seen by Provider: 05/10/25 14:44 Source: patient and RN notes reviewed Mode of arrival: ambulatory Limitations: no limitations History of Present Illness HPI Narrative: 29-year-old female presents with concern for bilateral ear pain, sore throat, headache for several weeks. She has history of problems with her ear, they saw an ENT who did a CT scan but there was no treatment given. She reports intermittent drainage from both ears. Denies fever. Reports pain is keeping her awake at night. MD elicited complaint: sore throat Related Data Home Medications ?Medication ?Instructions ?Recorded ?Confirmed ?Last Taken ?Type L norgest/E estradiol-E estrad 1 tablet PO DAILY 06/10/23 10/11/24 Unknown History 0.15 mg-30 mcg (84)/10 mcg(7) tabs,3mos ([place]) fluoxetine 40 mg capsule 40 mg PO DAILY 06/10/23 10/11/24 Unknown History levothyroxine 100 mcg tablet 100 mcg PO DAILY 06/10/23 10/11/24 Unknown History fluticasone propionate 50 50 mcg intranasal DIRECTED 12/17/23 10/11/24 Unknown History mcg/actuation nasal spray,suspension lorazepam 1 mg tablet 1 mg PO BID 02/08/24 10/11/24 Unknown History fluoxetine 20 mg capsule 20 mg PO QPM 08/05/24 10/11/24 Unknown History Allergies Allergy/AdvReac Type Severity Reaction Status Date / Time Penicillins Allergy Mild Rash Verified 04/27/25 17:24 latex Allergy Unknown RASH Verified 04/27/25 17:24 morphine Allergy Unknown Irritable Verified 04/27/25 17:24 Sulfa (Sulfonamide Allergy Unknown HIVES Verified 04/27/25 17:24 Antibiotics) cetirizine AdvReac Unknown HYPERACTIVI Verified 04/27/25 17:24 TY amphetamine (From Adderall) AdvReac Drowsy Verified 04/27/25 17:24 dextroamphetamine (From AdvReac Drowsy Verified 04/27/25 17:24 Adderall) Review of Systems Review of Systems: CONSTITUTIONAL: Denies malaise, chills, sweats, or fever. EYES: Denies visual changes, redness, or discharge. ENT: Denies rhinorrhea, congestion, sinus pain. Reports otalgia and sore throat. CARDIOVASCULAR: Denies chest pain, palpitations, or edema. RESPIRATORY: Denies cough. Denies dyspnea. GASTROINTESTINAL: Denies abdominal pain, nausea, vomiting, diarrhea SKIN: Denies rash or itching. MUSCULOSKELETAL: Denies myalgia. NEUROLOGIC: Reports headache. All systems reviewed & are unremarkable except as noted in HPI and below PMFSH Past Medical History Medical History Anxiety Non-insulin dependent diabetes mellitus Hypothyroidism GERD (gastroesophageal reflux disease) Seasonal allergic rhinitis Encephalopathy Learning disabilities Surgical History Surgical History No significant past surgical history Family History Family History Other No significant family history Social History Social History Smoking status: Never smoker Tobacco type: cigarettes Second hand tobacco smoke exposure: No Alcohol intake: never Substance use: never Substance use type: does not use Living arrangements: with family Occupation/Education: other Additional occupation/education comments: disable Gender identity (if verbalized by the patient): Female Comments At time of signature, agree with nursing past medical, surgical, social and family history. There is no relevant family history pertinent to the presenting complaint Exam Narrative: GENERAL: Well-appearing, well-nourished, and in no acute distress. HEAD: Normocephalic EYES: PERRLA, conjunctivae clear ENT: Nares clear. Mucous membranes moist. TM pearly vizcaino with dull light reflex bilaterally; no tragal tenderness. Oropharynx not erythematous without lesions. Tonsils not enlarged and without exudate, no drooling, no hoarseness, no trismus, uvula midline. NECK: Supple. No lymphadenopathy CHEST: Clear to auscultation, breath sounds equal. No wheezing, rhonchi, rales, or stridor. No respiratory distress, speaks in full sentences. HEART: Regular rate and rhythm. No murmur heard. SKIN: Warm, dry, no rash. NEURO: Alert and oriented x3. PSYCH: Normal mood and affect Course Course Emergency Course: Patient is aware of diagnosis, understands and agrees to treatment plan. Anticipatory guidance given. Patient agrees to follow-up as directed and is aware of reasons to seek care at the emergency department. Portions of this record may have been created with voice recognition software Level of Care: Express Care Visit Vital Signs Vital signs: Vital Signs Temperature 98.1 F 05/10/25 14:39 Pulse Rate 114 H 05/10/25 14:39 Respiratory Rate 16 05/10/25 14:39 Blood Pressure 168/91 H 05/10/25 14:39 Pulse Oximetry 98 05/10/25 14:39 Temperature 98.1 F 05/10/25 14:39 Pulse Rate 114 H 05/10/25 14:39 Respiratory Rate 16 05/10/25 14:39 Blood Pressure 168/91 H 05/10/25 14:39 Pulse Oximetry 98 05/10/25 14:39 Reviewed. MDM - URI/Sore Throat MDM Narrative Medical decision making narrative: Differential diagnosis considered: Betancourt virus, strep pharyngitis, allergic rhinitis, upper respiratory tract infection, sinusitis, rhinosinusitis, nasopharyngitis. viral pharyngitis, otitis media, otitis externa, pneumonia, bronchitis, viral cough syndrome, viral syndrome, and influenza. Exam findings show no acute concerns or changes; patient is non-toxic appearing and is in no distress. Patient is appropriate for outpatient treatment and follow-up. Lab Data Attestation: I reviewed the patient's lab results. Critical Care Time Critical Care Time Critical Care Time: No Discharge Plan Discharge Clinical Impression: Sinusitis Patient Disposition: Home Condition: Stable Instructions: Antibiotic Form, Sinusitis (ED) Additional Instructions: Symptomatic treatment of a sinus infection aims to relieve symptoms. These treatments do not shorten the duration of illness. Nonprescription pain medications, such as acetaminophen (eg, Tylenol) or ibuprofen (eg, Motrin, Advil), are recommended for pain. You can take Tylenol every 4 hours and ibuprofen every 6 hours. You may stagger these so ear taking 1 of them every 2-3 hours as needed for pain. Flushing the nose and sinuses with a saline solution several times per day has been proven to decrease pain associated with congestion and shorten the duration of symptoms. Please follow-up with your primary care doctor in the next 1-2 days. If you cannot follow-up with your primary care doctor please go to the ED for any urgent issues. If you have any worsening of symptoms or any other concerns please go to the ED immediately. Patient Language: Bhutanese Prescriptions: New prednisone 20 mg tablet 40 mg PO DAILY 5 Days Qty: 10 0RF doxycycline monohydrate 100 mg tablet 100 mg PO BID 7 Days Qty: 14 0RF No Action fluticasone propionate 50 mcg/actuation spray,suspension 50 mcg INTRANASAL DIRECTED fluoxetine 20 mg capsule 20 mg PO QPM doxycycline hyclate 100 mg capsule 100 mg PO BID 7 Days Qty: 14 0RF dextromethorphan-guaifenesin 5-100 mg/5 mL liquid 10 ml PO Q4-8H PRN (Reason: cough) Qty: 500 0RF fluoxetine 40 mg capsule 40 mg PO DAILY levothyroxine 100 mcg tablet 100 mcg PO DAILY L norgest/e.estradiol-e.estrad [[place]pes[place]] 0.15 mg-30 mcg (84)/10 mcg (7) tablets,dose pack,3 month 1 tablet PO DAILY lorazepam 1 mg tablet 1 mg PO BID Follow-up/Referrals: Adi,Halle Underwood, ORDERING BOX OPERATOR [Primary Care Provider, Unknown] Time of Disposition: 15:03
[2025-05-10 16:56] LABS: EDSTREPNEGPOS1 Negative (Negative)
== END 2025-05-10 15:10 | disposition home or self-care (01) ==
PROVIDERS: Emergency Provider Nurse Practitioner
DX: J32.9 Chronic sinusitis, unspecified (principal); E11.9 Type 2 diabetes mellitus without complications; E03.9 Hypothyroidism, unspecified; K21.9 Gastro-esophageal reflux disease without esophagitis; F41.9 Anxiety disorder, unspecified
CPT/HCPCS: 87081; 87880; 99213; G0463